=== PATIENT | female | born 1960 | race Caucasian/White ===

== ENCOUNTER → 2017-06-12 15:49 | Outpatient (CLI) | payer BC, SELFPAY ==
--- NOTE | 2017-06-12 15:52 | CT_ITS ---
STUDY: CT CHEST WITH CONTRAST REASON FOR EXAM: Female, 57 years old. 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 RADIATION DOSAGE (If Supplied By Facility): CTDIvol = ( 16.23 ) mGy, DLP = ( 564.40 ) mGycm TECHNIQUE: Transaxial imaging was performed following intravenous administration of 100CC ml of Isovue 300 contrast material. Multiplanar coronal and sagittal images were reformatted. Individualized dose optimization techniques were used for this CT. COMPARISON: CT of the chest, June 04, 2016. FINDINGS: The lungs are are mildly hyperexpanded. There is evidence of left lower lobectomy There is no focal mass or infiltrate within the lungs. There is no demonstrated pleural abnormality. Normal heart and pericardium. Normal mediastinum. Normal hilar regions. Normal enhanced pulmonary arteries. Normal aorta arch and descending thoracic aorta. There are multi-level degenerative changes of the thoracic spine. There is no demonstrated abnormality of the visualized upper abdomen. CT/Chest WITH Contrast IMPRESSION: 1. Left lower lobe lobectomy with removal of the lower lobe mass seen on the prior study. 2. No other interval change. Electronically Signed: Shashank Saldivar DO at 16:59 EDT Tel [phone], Service support ,
[2017-06-12 16:21] LABS: CREATININE FINGERSTICK 0.8 mg/dL (0.55-1.02); EGFR FINGERSTICK > 60.0000 mL/min (>60)
== END ==
PROVIDERS: Visit Provider Internal Medicine Medical Oncology
DX: D3A.090 Benign carcinoid tumor of the bronchus and lung (principal)
CPT/HCPCS: 71260; Q9967

== ENCOUNTER → 2017-08-12 08:12 | Outpatient (CLI) | payer BC, SELFPAY ==
[2017-08-12 09:07] LABS: Glucose, Dipstick Normal (Normal); Ketone-Dipstick Negative (Negative); Leukocyte Esterase-Dipstick Negative /ul (Negative); Nitrite-Dipstick Positive (Negative); Occult Blood-Urine 25 /ul (Negative); Protein-Dipstick Negative (Negative); Urine Bilirubin Dipstick Negative (Negative); Urine Urobilinogen Normal (Normal)
[2017-08-12 09:10] LABS: Color, Urine Yellow (Yellow); Urine Clarity Sl Cldy (Clear)
[2017-08-12 09:20] LABS: Hemoglobin A1c 6.4 % (4.2-6.3)
[2017-08-12 09:34] LABS: ALB/GLOB Ratio 0.7 RATIO (0.9-2.4); AST(SGOT) 13 U/L (15-37); Alanine Aminotransfer ALT/SGPT 17 U/L (13-56); Alkaline Phosphatase 95 U/L (45-117); Anion Gap 5 (5-15); BUN 15 mg/dL (7-18); BUN/Creat Ratio 23.8 RATIO (10-20); Calcium,Total 8.7 mg/dL (8.5-10.1); Chloride 106 mmol/L (98-107); Cholesterol 122 mg/dL (200); Creatinine, Serum 0.63 mg/dL (0.55-1.02); EST Glomerular Filtration Rate 104 mL/min (>60); Est Glom Filt Rate - Afr Amer 126 mL/min (>60); Globulin 4.1 g/dL (2.2-4.2); Glucose 104 mg/dL (74-106); High Density Lipoprotein 40 mg/dL; Potassium 4.1 mmol/L (3.5-5.1); Protein, Total 7.1 g/dL (6.4-8.2); Sodium Level 140 mmol/L (136-145); Triglycerides 99 mg/dL; Very Low Density Lipoprotein 20 mg/dL (5-40)
== END ==
PROVIDERS: Visit Provider Family Medicine
DX: E78.00 Pure hypercholesterolemia, unspecified (principal); I10 Essential (primary) hypertension; E11.9 Type 2 diabetes mellitus without complications
CPT/HCPCS: 36415; 80053; 80061; 81002; 83036

== ENCOUNTER → 2017-12-12 17:02 | Outpatient (CLI) | payer BC, SELFPAY | PROVIDERS: Referring Provider Urology; Visit Provider Urology | DX: R30.0 Dysuria (principal) | CPT/HCPCS: 87077; 87086; 87088; 87186 ==

== ENCOUNTER 2018-01-07 02:35 | Emergency (ER) | payer BC, SELFPAY ==
[2018-01-07 02:36] VITALS: BP 149/77; PULSE 82; RESP 18; TEMP 36.4; O2SAT 97; BMI 35.1
--- NOTE | 2018-01-07 02:56 | CT_ITS ---
STUDY: CT ABDOMEN AND PELVIS WITHOUT CONTRAST REASON FOR EXAM: Female, 57 years old. Right flank pain RADIATION DOSAGE (If Supplied By Facility): CTDIvol = ( 18.87 ) mGy, DLP = ( 976.14 ) mGycm TECHNIQUE: Transaxial images were obtained from the dome of the diaphragm to the symphysis pubis without oral contrast, and without intravenous contrast. Sagittal and coronal images were reconstructed. # of Images: 486 Individualized dose optimization techniques were used for this CT. COMPARISON: 11/14/2016 FINDINGS: The visualized lung bases are unremarkable. The visualized portions of the heart are within normal limits. Normal liver. Normal gallbladder and extrahepatic biliary system. Normal spleen. Normal pancreas. Normal bilateral adrenal glands. Moderate right hydroureteronephrosis is noted with associated renal swelling and stranding. No underlying obstructing ureter stone is seen, however. No bladder stones are seen. Normal left kidney. Normal visualized stomach. 2 cm duodenal diverticulum. Normal colon. The appendix is visualized and appears normal. Normal abdominal aorta. Normal inferior vena cava. Normal retroperitoneum. Normal urinary bladder. Normal abdominal wall. Normal osseous structures. CT/Abdomen/Pelvis without Cont IMPRESSION: Moderate right hydroureteronephrosis is noted with associated renal swelling and stranding. No underlying obstructing ureter stone is seen, however. No bladder stones are seen. Findings are likely related to residual obstructive uropathy from a previously passed stone. Duodenal diverticulum. Electronically Signed: Ki Lyles MD at 3:41 EDT Tel , Service support ,
--- NOTE | 2018-01-07 02:58 | ED.DCSUM_ITS ---
History of Present Illness Chief Complaint: Flank Pain Informant: Patient Onset: Today Context: Sudden Onset Timing: Intermittent Current Severity: Severe Maximum Severity: Severe Worsened by: nothing Relieved by: nothing despite taking an old Percocet Associated Symptoms: n/v Narrative: Patient with a long-standing history of kidney stones states she is having kidney stone pain today on the right side. Radiates into her back. Not into her groin. She states it started almost 20 hours ago, she passed a couple of small stones and the pain went away, but then it came back, feeling like she had another stone that would not pass and the pain got worse. She had some dry heaving at home. No fevers. She had some mild dysuria and a small amount of hematuria. She is on no anticoagulants. Prior similar symptoms: Yes - Past Medical History (1) Kidney stones Status: Chronic (2) Hypertension Status: Chronic (3) Carcinoid tumor of left lung Status: Resolved Past Medical History - Allergies and Home Meds Allergies/Adverse Reactions: Allergies erythromycin base Adverse Reaction (Severe, Verified 01/07/18 02:36) Upset Stomach Primary Care Physician: Billy Bhatti MD [Primary Care Provider] - Lives: Spouse/ Significant Other Smoking Status: Former smoker Review of Systems General: Denies: Chills, Fever Cardiovascular: Denies: Chest pain, Palpitations Respiratory: Denies: Dyspnea, Cough Gastrointestinal: Reports: Abdominal pain, Nausea, Vomiting Genitourinary: Reports: Dysuria, Hematuria. Denies: Frequency Musculoskeletal: Reports: Back pain. Denies: Swelling, Extremity Pain Physical Exam Vital Signs/Narrative: Vital Signs Temp Pulse Resp BP Pulse Ox 01/07/18 02:36 97.5 F L 82 18 149/77 H 97 Inital Vital Signs reviewed: Yes General: Well nourished, Well developed, Obese, - - nad Head: Normocephalic, Atraumatic Eyes: Perrl, EOMI ENT: Moist mucous membranes, No rhinorrhea Neck: Supple, Nontender Cardiovascular: Regular rate, Regular rhythm, No murmurs Respiratory: No distress, CTA bilaterally, Chest nontender Abdomen: Soft, Nontender, Nondistended, Normal bowel sounds Back: Nontender, Normal Inspection. Negative for: CVA tenderness Extremities: Nontender, No edema Skin: Normal color, No rash Neurological: Alert, Oriented x3, Cranial nerves II-XII grossly intact, Normal Strength, Normal Sensation Psychological: Normal affect Diagnostic/Tx/Re-eval Impressions Abdomen/Pelvis CT 01/07/18 02:56 IMPRESSION: Moderate right hydroureteronephrosis is noted with associated renal swelling and stranding. No underlying obstructing ureter stone is seen, however. No bladder stones are seen. Findings are likely related to residual obstructive uropathy from a previously passed stone. Duodenal diverticulum. Electronically Signed: Ki Lyles MD at 3:41 EDT Tel , Service support , 01/07/18 02:56 Abdomen/Pelvis without Cont [CT] Stat Laboratory Results 01/07/18 01/07/18 01/07/18 02:52 02:52 02:52 WBC 15.5 H RBC 4.62 Hgb 13.5 Hct 40.6 MCV 87.9 MCH 29.2 MCHC 33.3 RDW 15.5 H RDW Differential 50.3 H Plt Count 311 MPV 9.2 Immature Gran % (Auto) 0.500 Neut % (Auto) 76.4 H Lymph % (Auto) 15.5 L Cocke % (Auto) 6.1 Eos % (Auto) 1.2 Baso % (Auto) 0.3 Absolute Neuts (auto) 11.9 H Absolute Lymphs (auto) 2.41 Total Counted Not Reportable Sodium 140 Potassium 3.8 Chloride 104 Carbon Dioxide 29.0 Anion Gap 7 BUN 22 H Creatinine 0.80 Estim Creat Clear Calc 70.66 Est GFR (MDRD) Af Amer 96 Est GFR (MDRD) Non-Af 79 BUN/Creatinine Ratio 27.7 H Glucose 142 H Calcium 8.7 Urine Color Yellow Urine Clarity Clear Urine pH 5.0 Ur Specific [place] 1.030 Urine Protein 100 H Urine Glucose (UA) Normal Urine Ketones Negative Urine Occult Blood 150 H Urine Nitrite Negative Urine Bilirubin Negative Urine Urobilinogen Normal Ur Leukocyte Esterase 25 H Urine RBC 0 SEEN Urine WBC 0-5 SEEN Ur Squamous Epith Cells 0-5 SEEN Urine Bacteria 0 SEEN Hyaline Casts 0-5 SEEN Urine Mucus 0 SEEN - Medical Decision Making Labs are unremarkable, urine shows no infection but there is evidence of microscopic hematuria, CT shows hydronephrosis on the right, however there is no stone obstructing at this time, or signs of any other obstruction. There is some stranding, there is basically the appearance of a stone that was recently passed and there is no stone in the bladder. Patient was given analgesics and Zofran, she is feeling much better, with resolution of all symptoms. Will discharge with close outpatient follow-up if she has persistent symptoms, with urology. ED Disposition - Plan for ED Patient: Disposition: Home or Assisted Living Chief Complaint: Flank Pain Diagnosis: Renal colic on right side, Kidney stones Instructions: ED Stone Renal Passed Referrals: Roshan Farias MD [STAFF PHYSICIAN] - 3-5 Days if not improving
[2018-01-07] MEDS: Ketorolac 30 MG/ML Syringe IV (03:03)
[2018-01-07] MEDS: Morphine 4 MG/ML Syringe IV (03:03)
[2018-01-07] MEDS: Ondansetron 4 MG/2 ML Vial IV (03:03)
[2018-01-07 03:04] LABS: Bacteria 0 SEEN /hpf (None Seen); Mucous, Urine 0 SEEN /hpf (<or=2+); Red Blood Cells-Urine 0 SEEN /hpf (0-5)
[2018-01-07 03:12] LABS: Absolute Lymphocyte Count 2.41 X10^3/ul (0.83-4.51); Absolute Neutrophil Count 11.9 X10^3/uL (2.0-7.7); Basophil# 0.05 X10^3/uL; Basophil% 0.3 % (0-1); Eosinophil# 0.18 X10^3/uL; Eosinophils% 1.2 % (0-5); Hematocrit 40.6 % (37-47); Hemoglobin 13.5 g/dl (12.0-15.0); Lymphocyte # 2.41 X10^3/ul (4.0); Lymphocyte % 15.5 % (19-41); Mean Corp Hgb Conc 33.3 g/gl (32-36); Mean Corpuscular Hgb 29.2 pg (27.0-32.0); Mean Corpuscular Volume 87.9 fL (81-99); Mean Platelet Vol. 9.2 fl (6.2-12.0); Monocyte# 0.95 X10^3/uL; Monocyte% 6.1 % (0-10); Neutrophil # 11.88 X10^3/uL (2.7-7.7); Neutrophil % 76.4 % (47-70); Platelet Count 311 K/mm3 (150-450); RBC Distribution Width CV 15.5 % (11.6-14.6); RBC Distribution Width SD 50.3 fl (35.1-43.9); Red Blood Count 4.62 M/mm3 (4.2-5.4); White Blood Count 15.5 K/mm3 (4.4-11.0)
[2018-01-07 03:15] LABS: Color, Urine Yellow (Yellow); Glucose, Dipstick Normal (Normal); Ketone-Dipstick Negative (Negative); Leukocyte Esterase-Dipstick 25 /ul (Negative); Nitrite-Dipstick Negative (Negative); Occult Blood-Urine 150 /ul (Negative); POSITIVE COUNT NO; POSITIVE DIFFERENTIAL NO; POSITIVE MORPHOLOGY NO; Protein-Dipstick 100 mg/dl (Negative); Urine Bilirubin Dipstick Negative (Negative); Urine Clarity Clear (Clear); Urine Urobilinogen Normal (Normal)
[2018-01-07 03:22] LABS: Anion Gap 7 (5-15); BUN 22 mg/dL (7-18); BUN/Creat Ratio 27.7 RATIO (10-20); Calcium,Total 8.7 mg/dL (8.5-10.1); Chloride 104 mmol/L (98-107); EST Glomerular Filtration Rate 79 mL/min (>60); Est Glom Filt Rate - Afr Amer 96 mL/min (>60); Estimated Creatinine Clearance 70.66 ml/min; Glucose 142 mg/dL (74-106); Potassium 3.8 mmol/L (3.5-5.1); Sodium Level 140 mmol/L (136-145)
[2018-01-07 03:30] LABS: Hyaline Cast 0-5 SEEN /lpf (0-5); Squamous Epithelial Cells - UA 0-5 SEEN /hpf (5-10); White Blood Cells 0-5 SEEN /hpf (0-5)
[2018-01-07 04:32] VITALS: BP 116/71; PULSE 80; RESP 18; O2SAT 93
== END 2018-01-07 04:32 | disposition home or self-care (01) ==
PROVIDERS: Emergency Provider Emergency Medicine; Family Provider Family Medicine; PCP Family Medicine
DX: N13.2 Hydronephrosis with renal and ureteral calculous obstruction (principal); R31.29 Other microscopic hematuria; E66.9 Obesity, unspecified; I10 Essential (primary) hypertension; Z87.891 Personal history of nicotine dependence; Z87.442 Personal history of urinary calculi
CPT/HCPCS: 74176; 80048; 81001; 85025; 96374; 96375; 99282; J7030; J2405

== ENCOUNTER → 2018-01-22 16:19 | Outpatient (CLI) | payer BC, SELFPAY ==
--- NOTE | 2018-01-22 | FLU_PTH ---
PATIENT: LIZZY RITTER LOC: LAB U#:[id number] AGE/SX: 65/F ROOM: RE01/22/[address]: Dr. Roshan Farias MD : 1960 BED: DIS: SPEC #: [id number] RECD: 01/22/18 16:33 STATUS: MUNA FAINA #: [id number] HARJIT: 01/22/18 00:[address]: Roshan Farias DEPT: CYTOLOGY RECD BY: Henny Kaufman ENTERED: 01/23/18 09:19 SP TYPE: Fluid OTHR DR: Dr. Billy Bhatti MD Tissues: Urine Procedures: Special Stain Group II Surgery Specimen Level IV Cytospin Fluid HEADER OPERATION: Not noted PRE-OP DIAGNOSIS: Hematuria, R31.9 TISSUE SUBMITTED: Urine for cytology DIAGNOSIS CYTOLOGY Urine for cytology (cytospin): Negative for malignant cells. See comment. AM:stephanie 01/24/18 COMMENT The specimen primarily contains squamous epithelial cells. Clinical correlation is suggested. CYTOLOGY STUDY Slides are reviewed. CYTOLOGY GROSS Received is 85 ml of cloudy pale yellow fluid labeled with the patient's name and and designated per the requisition as urine. Submitted for cytology. /CC:cc 01/23/18 TC:3 CPT: 15700
[2018-01-22 16:34] LABS: Cytology, Body Fluid / CSF SEE PATHOLOGY REPORT
== END ==
PROVIDERS: Family Provider Family Medicine; PCP Family Medicine; Referring Provider Urology; Visit Provider Urology
DX: R31.9 Hematuria, unspecified (principal)
CPT/HCPCS: 88108; 88305; 88313

== ENCOUNTER → 2018-02-11 09:40 | Outpatient (CLI) | payer BC, SELFPAY ==
[2018-02-11 10:33] LABS: Cholesterol 145 mg/dL (200); High Density Lipoprotein 48 mg/dL; Triglycerides 113 mg/dL; Very Low Density Lipoprotein 23 mg/dL (5-40)
[2018-02-11 10:39] LABS: Hemoglobin A1c 6.7 % (4.2-6.3)
== END ==
PROVIDERS: Family Provider Family Medicine; PCP Family Medicine; Visit Provider Family Medicine
DX: I10 Essential (primary) hypertension (principal); E78.5 Hyperlipidemia, unspecified; E11.9 Type 2 diabetes mellitus without complications; E78.00 Pure hypercholesterolemia, unspecified; I48.91 Unspecified atrial fibrillation
CPT/HCPCS: 36415; 80061; 83036

== ENCOUNTER 2018-03-04 17:35 | Emergency (ER) | payer BC, SELFPAY ==
[2018-03-04 17:36] VITALS: BP 146/79; PULSE 78; RESP 16; TEMP 37; O2SAT 99; BMI 34.5
--- NOTE | 2018-03-04 17:56 | ED.VISSUMM ---
- ER Visit Summary Date of Service: 03/04/18 Chief Complaint: Hives and itching History of Present Illness: The patient is a 58 F who presents with hives and itching that began yesterday. Patient states she cleaned her shower yesterday then took a shower. Patient states the hives and itching started after her shower. Patient states she applied lotion to her legs after her shower. Patient denies any new soaps, mechatronics engineer, lotions, perfumes, laundry detergents, fabric softeners, or shampoos. Patient states she was recently tested for allergies by a machine helper. Patient states she had test strips put on her back and were removed approximately 10 days ago. Patient had no reaction over the past 10 days. Patient denies any difficulty swallowing or difficulty breathing. Physical Examination: Vital signs are stable. Patient is afebrile. Patient is in no acute distress. Oral mucosa is pink and moist. Oropharynx is clear. Airway is patent. Neck is supple. Trachea is midline. Heart was regular rate and rhythm. Lungs are clear and equal bilateral. There is good respiratory effort noted. Abdomen is soft and nontender. Skin is warm dry. There is urticaria noted of the chest, abdomen, back, and bilateral upper extremities. There are no vesicles or pustules noted. There is no discharge or drainage noted. Cranial nerves II through XII are intact. There are no focal motor or sensory deficits noted. Emergency Department Course and Treatment: Patient was given a prescription for prednisone. Patient was instructed to follow-up with her machine helper in 7-10 days. Patient was instructed to take Benadryl as needed for any itching. Patient was instructed to return if worse in any way. Patient understood and was agreeable with the plan. All questions were answered. Disposition: Discharge home Impression: Urticaria This note was generated with [employer] dictation software. It may contain incorrect words, spelling, and punctuation that were not noted in review of the chart prior to signing ED Disposition - Plan for ED Patient: Disposition: Home or Assisted Living Chief Complaint: Itching Diagnosis: Urticaria Instructions: ED Allergic Reaction General Other Prescriptions: predniSONE tablet 60 mg PO DAILY #15 tab Referrals: Billy Bhatti MD [Primary Care Provider] -
--- NOTE | 2018-03-04 18:00 | ED.DCSUM_ITS ---
- ER Visit Summary Date of Service: 03/04/18 Chief Complaint: Hives and itching History of Present Illness: The patient is a 58 F who presents with hives and itching that began yesterday. Patient states she cleaned her shower yesterday then took a shower. Patient states the hives and itching started after her shower. Patient states she applied lotion to her legs after her shower. Patient denies any new soaps, call center specialist, lotions, perfumes, laundry detergents, fabric softeners, or shampoos. Patient states she was recently tested for allergies by a workforce development assistant. Patient states she had test strips put on her back and were removed approximately 10 days ago. Patient had no reaction over the past 10 days. Patient denies any difficulty swallowing or difficulty breathing. Physical Examination: Vital signs are stable. Patient is afebrile. Patient is in no acute distress. Oral mucosa is pink and moist. Oropharynx is clear. Airway is patent. Neck is supple. Trachea is midline. Heart was regular rate and rhythm. Lungs are clear and equal bilateral. There is good respiratory effort noted. Abdomen is soft and nontender. Skin is warm dry. There is urticaria noted of the chest, abdomen, back, and bilateral upper extremities. There are no vesicles or pustules noted. There is no discharge or drainage noted. Cranial nerves II through XII are intact. There are no focal motor or sensory deficits noted. Emergency Department Course and Treatment: Patient was given a prescription for prednisone. Patient was instructed to follow-up with her workforce development assistant in 7-10 days. Patient was instructed to take Benadryl as needed for any itching. Patient was instructed to return if worse in any way. Patient understood and was agreeable with the plan. All questions were answered. Disposition: Discharge home Impression: Urticaria This note was generated with [employer] dictation software. It may contain incorrect words, spelling, and punctuation that were not noted in review of the chart prior to signing ED Disposition - Plan for ED Patient: Disposition: Home or Assisted Living Chief Complaint: Itching Diagnosis: Urticaria Instructions: ED Allergic Reaction General Other Prescriptions: predniSONE tablet 60 mg PO DAILY #15 tab Referrals: Billy Bhatti MD [Primary Care Provider] -
[2018-03-04] MEDS: predniSONE 20 MG Tablet 60 MG PO (18:19)
[2018-03-04 18:21] VITALS: PULSE 74; RESP 16; O2SAT 100
--- OUTSIDE RECORDS SUMMARY | 2018-06-06 13:44 | XMS RPT_ITS ---
:1960 Author Organization [place] Support Name Relationship Address Phone MADI RITTER Unavailable [address] + [place] [address] SALINAS, ERICK Unavailable [address] + [place] [address] WOOBR Unavailable [address] [place] [address] MADI RITTER Unavailable [address] + [place] [address] SALINAS, ERICK Unavailable [address] + [place] [address] WOOBR Unavailable [address] [place] [address] MADI RITTER Unavailable [address] + [place] [address] SALINAS, ERICK Unavailable [address] + [place] [address] WOOBR Unavailable [address] [place] [address] MADI RITTER Unavailable [address] + [place] [address] SALINAS, ERICK Unavailable [address] + [place] [address] WOOBR Unavailable [address] [place] [address] MADI RITTER Unavailable [address] + [place] [address] SALINAS, ERICK Unavailable [address] + [place] [address] WOOBR Unavailable [address] [place] [address] MADI RITTER Unavailable [address] + [place] [address] SALINAS, ERICK Unavailable [address] + [place] [address] WOOBR Unavailable [address] [place] [address] MADI RITTER Unavailable [address] + [place] [address] SALINAS, ERICK Unavailable [address] + [place] [address] WOOBR Unavailable [address] [place] [address] MADI RITTER Unavailable [address] + [place] [address] SALINAS, ERICK Unavailable [address] + [place] [address] WOOBR Unavailable [address] [place] [address] RITTER, DANIEL Unavailable [address] + [place] [address] SALINAS, ERICK Unavailable [address] + [place] [address] WOOBR Unavailable [address] [place] [address] MADI RITTER Unavailable [address] + [place] [address] SALINAS, ERICK Unavailable [address] + [place] [address] WOOBR Unavailable [address] [place] [address] MADI RITTER Unavailable [address] + [place] [address] SALINAS, ERICK Unavailable [address] + [place] [address] WOOBR Unavailable [address] [place] [address] MADI RITTER Unavailable [address] + [place] [address] SALINAS, ERICK Unavailable [address] + [place] [address] WOOBR Unavailable [address] [place] [address] MADI RITTER Unavailable [address] + [place] [address] SALINAS, ERICK Unavailable [address] + [place] [address] WOOBR Unavailable [address] [place] [address] Care Team Providers Name Role Phone Malcom Marina Attending Unavailable Davy, Billy Primary Care Unavailable Su Will Attending Unavailable Davy, Billy Referring Unavailable Davy, Billy Primary Care Unavailable Akshat Bermudez Attending Unavailable Davy, Billy Attending Unavailable Davy, Billy Referring Unavailable Davy, Billy Primary Care Unavailable Malcom Marina Attending Unavailable Malcom Marina Referring Unavailable Davy, Billy Primary Care Unavailable Malcom Marina Attending Unavailable Davy, Billy Primary Care Unavailable Malcom Marina Consulting Unavailable Davy, Billy Attending Unavailable Davy, Billy Referring Unavailable Davy, Billy Primary Care Unavailable Su Calderón Attending Unavailable Chava Price Attending Unavailable Davy, Billy Referring Unavailable Davy, Billy Primary Care Unavailable Roshan Farias Attending Unavailable Roshan Farias Referring Unavailable SANDHYA ESTRADA Attending Unavailable Davy, Billy Primary Care Unavailable Roshan Farias Attending Unavailable DinoraRoshan Referring Unavailable Davy, Billy Primary Care Unavailable Billy Bhatti Attending Unavailable Billy Bhatti Primary Care Unavailable DavyBilly castillo Jasvir Attending Unavailable PROBLEMS PROBLEMS DATE TYPE CONDITION / CODE ATTENDING STATUS SOURCE 01/29/2018 Admitting Unknown / Billy Bhatti Active [facility] diagnosis UNK(Unknown) G [facility] Repository 01/22/2018 Unknown R31.9 - Hematuria, DinoraRoshan Active [facility] unspecified / [facility] R31.9(ICD-10) Hospital Repository 09/21/2017 Unknown I97.89 - Other Albert, Chava Active [facility] postprocedural Community complications and Hospital disorders of the Repository circulatory system, not elsewhere classified / I97.89(ICD-10) 09/21/2017 Unknown I48.91 - Unspecified Albert, [place] Active [facility] atrial fibrillation Community / I48.91(ICD-10) Hospital Repository 08/12/2017 Unknown E78.00 - Pure Billy Bhatti Active [facility] hypercholesterolemia Community , unspecified / Hospital E78.00(ICD-10) Repository 08/12/2017 Unknown I10 - Essential Billy Bhatti Active [facility] (primary) Community hypertension / Hospital I10(ICD-10) Repository 08/12/2017 Unknown E11.9 - Type 2 Billy Bhatti Active [facility] diabetes mellitus Community without Hospital complications / Repository E11.9(ICD-10) 06/14/2017 Unknown 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 - 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 / Repository D3A.090(ICD-10) PROCEDURES PROCEDURES No Procedure Records FoundRESULTS RESULTS SCREENING MAMM (CAD), Observed: 04/02/2018 Status: F Source: [place] BILAT 4:08 PM [facility] REPOSITORY [facility] Imaging Services [address] [place] [address] SCREENING MAMM (CAD), BILAT MR#: [id number] Acct: [id number] Name: CHERISE RITTER Rep #: [id number] : 1960 F 58 From: Adin Posadas MD PCP: Billy Bhatti MD Status: REG CLI Study: SCREENING MAMM (CAD), BILAT Date of Exam: 04/02/18 Exam# [id number] Ordering Dr: Billy Bhatti MD MAMMOGRAPHY - BILATERAL SCREENING REASON FOR EXAM: Female, 58 years old. Routine annual screening examination. PERTINENT HISTORY: Non-contributory. TECHNIQUE: Digital bilateral breast ana (3D mammographic acquisition) in the CC and MLO projections. 2-D mediolateral oblique (MLO) and craniocaudad (CC) views of both breasts were obtained. CAD: Full Field Digital Mammography with Computer Added Detection was performed. COMPARISON: Comparison is made with prior study dated February 24, 2017 and August 25, 2014. FINDINGS: Breast Composition: The breasts are almost entirely fatty. There are no dominant masses or suspicious calcifications. No other significant abnormalities are identified. There has been no significant change since the prior study. BI/SCREENING MAMM (CAD), BILAT IMPRESSION: Stable bilateral screening mammogram. Yearly follow-up mammogram recommended. (A) ASSESSMENT CATEGORY: BIRADS Category 1: Negative. A letter regarding these results will be sent to the patient by the facility within 30 days. Approximately 10% of breast cancers are not detected by mammography. A normal mammogram should not delay biopsy of a clinically suspicious abnormality. [id number] Electronically Signed: Adin Posadas MD at 11:02 EST Tel [phone], Service support , CC: Billy Bhatti MD Nutritionists: Signed EMERGENCY DEPARTMENT Observed: 03/04/2018 Status: F Source: [place] SUMMARY 6:00 PM [facility] REPOSITORY [facility] Medical Records Department [address] [place] [address] Emergency Department Summary 03/04/18 1756 MR#: [id number] Acct: [id number] Name: CHERISE RITTER Rep #: [id number] : 1960 58 From: Akshat Bermudez DO PCP: Billy Bhatti MD Status: PRE ER - ER Visit Summary Date of Service: 03/04/18 Chief Complaint: Hives and itching History of Present Illness: The patient is a 58 F who presents with hives and itching that began yesterday. Patient states she cleaned her shower yesterday then took a shower. Patient states the hives and itching started after her shower. Patient states she applied lotion to her legs after her shower. Patient denies any new soaps, email marketing assistant, lotions, perfumes, laundry detergents, fabric softeners, or shampoos. Patient states she was recently tested for allergies by a technical support 1 software engineer. Patient states she had test strips put on her back and were removed approximately 10 days ago. Patient had no reaction over the past 10 days. Patient denies any difficulty swallowing or difficulty breathing. Physical Examination: Vital signs are stable. Patient is afebrile. Patient is in no acute distress. Oral mucosa is pink and moist. Oropharynx is clear. Airway is patent. Neck is supple. Trachea is midline. Heart was regular rate and rhythm. Lungs are clear and equal bilateral. There is good respiratory effort noted. Abdomen is soft and nontender. Skin is warm dry. There is urticaria noted of the chest, abdomen, back, and bilateral upper extremities. There are no vesicles or pustules noted. There is no discharge or drainage noted. Cranial nerves II through XII are intact. There are no focal motor or sensory deficits noted. Emergency Department Course and Treatment: Patient was given a prescription for prednisone. Patient was instructed to follow-up with her technical support 1 software engineer in 7-10 days. Patient was instructed to take Benadryl as needed for any itching. Patient was instructed to return if worse in any way. Patient understood and was agreeable with the plan. All questions were answered. Disposition: Discharge home Impression: Urticaria This note was generated with [employer] dictation software. It may contain incorrect words, spelling, and punctuation that were not noted in review of the chart prior to signing ED Disposition - Plan for ED Patient: Disposition: Home or Assisted Living Chief Complaint: Itching Diagnosis: Urticaria Instructions: ED Allergic Reaction General Other Prescriptions: predniSONE tablet 60 mg PO DAILY #15 tab Referrals: Billy Bhatti MD [Primary Care Provider] - What to do if you have Problems For any increased pain, shortness of breath, bleeding, nausea or vomiting, chest pain, or any unexpected problems, contact your Primary Care Provider. Call [facility] ([phone]) or report to the closest Emergency Room. Call 911 if necessary. 03/04/18 1800 <Electronically signed by Akshat Bermudez DO> Date Akshat Bermudez DO Cosigner Signature (If Indicated): Date CC: Billy Bhatti MD LIPID PROFILE Collected: 02/11/2018 Status: F Source: [place]K 9:50 AM [facility] REPOSITORY TYPE CODE TESTS RESULT OUT OF RANGE REFERENCE UNITS LAB L501.4900 200 mg/dL Normal CHOL 145 Result Comment: <200 mg/dL Desirable 200-240 mg/dL Borderline >240 mg/dL High Risk LAB L501.5000 mg/dL Normal TRIG 113 Result Comment: The drugs N-Acetylcysteine and Metamizole may falsely depress this assay. Serum Triglycerides Reference Interval Normal <150 mg/dL Borderline high 150 - 199 mg/dL High 200 - 499 mg/dL Very High > or = 500 mg/dL LAB L501.6400 mg/dL Normal HDL 48 Result Comment: The drugs N-Acetylcysteine and Metamizole may falsely depress this assay. Reference Range HDL <40 mg/dL Low HDL Cholesterol HDL >or= 60 mg/dL High HDL Cholesterol LAB L501.6500 0-130 mg/dL Normal LDL 74 LAB L501.6600 5-40 mg/dL Normal VLDL 23 Performed By: #### L500.4100 #### [facility] [address] [place], [address] HEMOGLOBIN A1C Collected: 02/11/2018 Status: F Source: GREAT NECK 9:50 AM [facility] REPOSITORY TYPE CODE TESTS RESULT OUT OF RANGE REFERENCE UNITS LAB L501.9985 4.2-6.3 % High HGB A1C 6.7 Performed By: #### L501.9985 #### [facility] [place], [address] PAP SMEAR Observed: 01/29/2018 Status: F Source: [facility] 4:41 PM [facility] Patient: CHERISE RITTER Specimen: [id number] Spec Type: PAP SMEAR OrdAri Boss: Billy Bhatti MD Status: SOUT Collect Date: 01/29/18 1641 Received Date: 01/30/1844 Source: CERVICAL() Procedure: CYTO PAP TLP MS Comments: Thinprep vial PAP QUESTIONNAIRE Patient: CHERISE RITTER ? - control? - Age/Sex: 57/F F ? - Hormones? - Col Date: 01/29/18 Menopausal? - Hyster? - LMP: NOT GIVEN Pertinent Hx: SCREENING PAP CYTOLOGY REPORT SPECIMEN ADEQUACY: SPECIMEN PROCESSED and EXAMINED, BUT UNSATISFACTORY FOR EVALUATION OF EPITHELIAL ABNORMALITY BECAUSE SCANT CELLULARITY PRESENT. DESCRIPTIVE DIAGNOSIS: SEE ADEQUACY STATEMENT. HPV TESTING: THERE IS INSUFFICIENT SPECIMEN TO SEND FOR HPV TESTING. Signed Verified/Reviewed by RODRÍGUEZ GUEVARA 02/06/18 [facility] NAME: CHERISE RITTER Pathology and Laboratory Medicine UNIT#: [id number] [facility] Ava Francis M.D. ROOM/BED: [facility] : 62 AGE/SEX: 58/F ORD.Billy Coles MD END OF REPORT CYTOLOGY, BODY FLUID / Collected: 01/22/2018 Status: F Source: [place] CSF 4:33 PM [facility] REPOSITORY Order Comment: Specimen Source: URINE TYPE CODE TESTS RESULT OUT OF RANGE REFERENCE UNITS LAB L350.1000 SEE Normal PATHOLOGY CYTOLOGY,BF REPORT /CSF Result Comment: Specimen submitted to Anatomical Pathology Department for testing. Performed By: #### L350.1000 #### [facility] [place], [address] FLUID/WASHING Observed: 01/22/2018 Status: F Source: HIEN 12:00 AM [facility] REPOSITORY Patient: CHERISE RITTER : 1960 (57/F) Acct Num: [id number] Phys: Dinora PULIDO,Roshan Ruby Unit Num: [id number] Loc: LAB Specimen: [id number] Received: 01/22/18 - 1633 Spec Type: Fluid TISSUES 1 TISSUES: Urine COMMENT The specimen primarily contains squamous epithelial cells. Clinical correlation is suggested. CYTOLOGY GROSS Received is 85 ml of cloudy pale yellow fluid labeled with the patient's name and and designated per the requisition as urine. Submitted for cytology. /CC:cc 01/23/18 TC:3 CPT: 54628 CYTOLOGY STUDY Slides are reviewed. DIAGNOSIS CYTOLOGY Urine for cytology (cytospin): Negative for malignant cells. See comment. AM:stephanie 01/24/18 HEADER OPERATION: Not noted PRE-OP DIAGNOSIS: Hematuria, R31.9 TISSUE SUBMITTED: Urine for cytology Signed Lefty Manda 01/24/18 <signature on file> Performed By: #### PFLU #### [facility] [address] [facility] [place], [address] EMERGENCY DEPARTMENT Observed: 01/07/2018 Status: F Source: GREAT NECK SUMMARY 4:24 AM [facility] REPOSITORY [facility] Medical Records Department [address] [facility] [place] [address] Emergency Department Summary 01/07/18 0257 MR#: [id number] Acct: [id number] Name: CHERISE RITTER Rep #: [id number] : 1960 57 From: Sandhya Estrada MD PCP: Billy Bhatti MD Status: REG ER History of Present Illness Chief Complaint: Flank Pain Informant: Patient Onset: Today Context: Sudden Onset Timing: Intermittent Current Severity: Severe Maximum Severity: Severe Worsened by: nothing Relieved by: nothing despite taking an old Percocet Associated Symptoms: n/v Narrative: Patient with a long-standing history of kidney stones states she is having kidney stone pain today on the right side. Radiates into her back. Not into her groin. She states it started almost 20 hours ago, she passed a couple of small stones and the pain went away, but then it came back, feeling like she had another stone that would not pass and the pain got worse. She had some dry heaving at home. No fevers. She had some mild dysuria and a small amount of hematuria. She is on no anticoagulants. Prior similar symptoms: Yes - Past Medical History (1) Kidney stones Status: Chronic (2) Hypertension Status: Chronic (3) Carcinoid tumor of left lung Status: Resolved Past Medical History - Allergies and Home Meds Allergies/Adverse Reactions: Allergies erythromycin base Adverse Reaction (Severe, Verified 01/07/18 02:36) Upset Stomach Primary Care Physician: Billy Bhatti MD [Primary Care Provider] - Lives: Spouse/ Significant Other Smoking Status: Former smoker Review of Systems General: Denies: Chills, Fever Cardiovascular: Denies: Chest pain, Palpitations Respiratory: Denies: Dyspnea, Cough Gastrointestinal: Reports: Abdominal pain, Nausea, Vomiting Genitourinary: Reports: Dysuria, Hematuria. Denies: Frequency Musculoskeletal: Reports: Back pain. Denies: Swelling, Extremity Pain Physical Exam Vital Signs/Narrative: Vital Signs 01/07/18 02:36 97.5 F L 82 18 149/77 H 97 Inital Vital Signs reviewed: Yes General: Well nourished, Well developed, Obese, - - nad Head: Normocephalic, Atraumatic Eyes: Perrl, EOMI ENT: Moist mucous membranes, No rhinorrhea Neck: Supple, Nontender Cardiovascular: Regular rate, Regular rhythm, No murmurs Respiratory: No distress, CTA bilaterally, Chest nontender Abdomen: Soft, Nontender, Nondistended, Normal bowel sounds Back: Nontender, Normal Inspection. Negative for: CVA tenderness Extremities: Nontender, No edema Skin: Normal color, No rash Neurological: Alert, Oriented x3, Cranial nerves II-XII grossly intact, Normal Strength, Normal Sensation Psychological: Normal affect Diagnostic/Tx/Re-eval Impressions Abdomen/Pelvis CT 01/07/18 02:56 IMPRESSION: Moderate right hydroureteronephrosis is noted with associated renal swelling and stranding. No underlying obstructing ureter stone is seen, however. No bladder stones are seen. Findings are likely related to residual obstructive uropathy from a previously passed stone. Duodenal diverticulum. Electronically Signed: Ki Lyles MD at 3:41 EDT Tel , Service support , 01/07/18 02:56 Abdomen/Pelvis without Cont [CT] Stat Laboratory Results WBC 15.5 H RBC 4.62 - Medical Decision Making Labs are unremarkable, urine shows no infection but there is evidence of microscopic hematuria, CT shows hydronephrosis on the right, however there is no stone obstructing at this time, or signs of any other obstruction. There is some stranding, there is basically the appearance of a stone that was recently passed and there is no stone in the bladder. Patient was given analgesics and Zofran, she is feeling much better, with resolution of all symptoms. Will discharge with close outpatient follow-up if she has persistent symptoms, with urology. ED Disposition - Plan for ED Patient: Disposition: Home or Assisted Living Chief Complaint: Flank Pain Diagnosis: Renal colic on right side, Kidney stones Instructions: ED Stone Renal Passed Referrals: Roshan Farias MD [STAFF PHYSICIAN] - 3-5 Days if not improving What to do if you have Problems For any increased pain, shortness of breath, bleeding, nausea or vomiting, chest pain, or any unexpected problems, contact your Primary Care Provider. Call [facility] ([phone]) or report to the closest Emergency Room. Call 911 if necessary. 01/07/18 0424 <Electronically signed by Sandhya Estrada MD> Date Sandhya Estrada MD Cosigner Signature (If Indicated): Date CC: Billy Bhatti MD ABDOMEN/PELVIS WITHOUT Observed: 01/07/2018 Status: F Source: [place] CONT 2:57 AM [facility] REPOSITORY [facility] Imaging Services [address] [place] [address] Abdomen/Pelvis without Cont MR#: [id number] Acct: [id number] Name: RITTERCHERISE Rep #: [id number] : 1960 F 57 From: Ki Lyles MD PCP: Billy Bhatti MD Status: PRE ER Study: Abdomen/Pelvis without Cont Date of Exam: 01/07/18 Exam# [id number] Ordering Dr: Sandhya Estrada MD STUDY: CT ABDOMEN AND PELVIS WITHOUT CONTRAST REASON FOR EXAM: Female, 57 years old. Right flank pain RADIATION DOSAGE (If Supplied By Facility): CTDIvol = ( 18.87 ) mGy, DLP = ( 976.14 ) mGycm TECHNIQUE: Transaxial images were obtained from the dome of the diaphragm to the symphysis pubis without oral contrast, and without intravenous contrast. Sagittal and coronal images were reconstructed. # of Images: 486 Individualized dose optimization techniques were used for this CT. COMPARISON: 11/14/2016 FINDINGS: The visualized lung bases are unremarkable. The visualized portions of the heart are within normal limits. Normal liver. Normal gallbladder and extrahepatic biliary system. Normal spleen. Normal pancreas. Normal bilateral adrenal glands. Moderate right hydroureteronephrosis is noted with associated renal swelling and stranding. No underlying obstructing ureter stone is seen, however. No bladder stones are seen. Normal left kidney. Normal visualized stomach. 2 cm duodenal diverticulum. Normal colon. The appendix is visualized and appears normal. Normal abdominal aorta. Normal inferior vena cava. Normal retroperitoneum. Normal urinary bladder. Normal abdominal wall. Normal osseous structures. CT/Abdomen/Pelvis without Cont IMPRESSION: Moderate right hydroureteronephrosis is noted with associated renal swelling and stranding. No underlying obstructing ureter stone is seen, however. No bladder stones are seen. Findings are likely related to residual obstructive uropathy from a previously passed stone. Duodenal diverticulum. Electronically Signed: Ki Lyles MD at 3:41 EDT Tel , Service support , CC: SANDHYA ESTRADA MD; Billy Bhatti MD Nutritionists: Signed CBC W/DIFF, AUTOMATED Collected: 01/07/2018 Status: F Source: HIEN 2:52 AM [facility] REPOSITORY TYPE CODE TESTS RESULT OUT OF RANGE REFERENCE UNITS LAB L100.1000 4.4-11.0 K/mm3 High WBC 15.5 LAB L100.1200 4.2-5.4 M/mm3 Normal RBC 4.62 LAB L100.1300 12.0-15.0 g/dl Normal HGB 13.5 LAB L100.1400 37-47 % Normal HCT 40.6 LAB L100.1500 81-99 fL Normal MCV 87.9 LAB L100.1600 27.0-32.0 pg Normal MCH 29.2 LAB L100.1700 32-36 g/gl Normal MCHC 33.3 LAB L100.1810 11.6-14.6 % High RDW CV 15.5 LAB L100.1820 35.1-43.9 fl High RDW SD 50.3 LAB L100.1900 150-450 K/mm3 Normal PLT 311 LAB L100.2000 6.2-12.0 fl Normal MPV 9.2 LAB L100.2100 47-70 % High NEUT% 76.4 LAB L100.2200 19-41 % Low LY% 15.5 LAB L100.2300 0-10 % Normal MONO% 6.1 LAB L100.2400 0-5 % Normal EO% 1.2 LAB L100.2500 0-1 % Normal BASO% 0.3 LAB L100.2550 0.0-0.9 % Normal IM GRAN % 0.500 Result Comment: IG% - Immature Granulocytes (promyelocytes, myelocytes and metamyelocytes) > 1% indicates that a LEFT SHIFT is Present. LAB L100.2620 2.0-7.7 X10 3/uL High Absolute Neut 11.9 LAB L100.2720 0.83-4.51 X10 3/ul Normal Absolute Lymph 2.41 Performed By: #### L100.0100 #### [facility] [place], [address] URINALYSIS, COMPLETE Collected: 01/07/2018 Status: F Source: HIEN 2:52 AM [facility] REPOSITORY Order Comment: Order Date: 01/07/18 Has pt arrived? Y How was Urine Obtained? CLEAN CATCH TYPE CODE TESTS RESULT OUT OF RANGE REFERENCE UNITS LAB L400.3000 Yellow COLOR Normal Yellow LAB L400.3050 Clear Normal CLARITY Clear LAB L400.3200 Normal mg/dl Normal GLUCOSE, UR Normal LAB L400.3300 Negative mg/dL Normal BILIRUBIN URINE Negative LAB L400.3400 Negative mg/dl Normal KETONE UR Negative LAB L400.3465 1.002-1.030 Normal SP.GR. DIPSTX 1.030 LAB L400.3550 5.0 - 8.0 pH UR Normal 5.0 LAB L400.3600 Negative mg/dl High PROT DIPSTX 100 LAB L400.3700 Normal mg/dl Normal UROBILI Normal LAB L400.3750 Negative Normal NITRITE UR Negative LAB L400.3780 Negative /ul High OCCULT BLOOD-UR 150 LAB L400.3800 Negative /ul High LEUK 25 ESTERASE LAB L400.4050 0-5 /hpf WBC Normal 0-5 SEEN LAB L400.4100 0-5 /hpf 0 Normal RBC-UA SEEN LAB L400.4150 5-10 /hpf SQUAM Normal EPI 0-5 SEEN LAB L400.4300 None Seen /hpf 0 Normal BACTERIA SEEN LAB L400.4350 <or=2+ /hpf 0 Normal MUCUS, URINE SEEN LAB L400.4400 0-5 /lpf Normal HYALINE CAST 0-5 SEEN Performed By: #### L400.0001 #### [facility] [address] [place], [address] BASIC METABOLIC Collected: 01/07/2018 Status: F Source: GREAT NECK PROFILE ([facility]) 2:52 AM [facility] REPOSITORY TYPE CODE TESTS RESULT OUT OF RANGE REFERENCE UNITS LAB L501.0100 74-106 mg/dL High GLU 142 Result Comment: Fasting Glucose result greater than or equal to 126 mg/dL suggests DIABETES MELLITUS per A.D.A. criteria. Please note revised GLUCOSE reference range effective 2017. LAB L501.1000 7-18 mg/dL High BUN 22 LAB L501.1100 0.55-1.02 mg/dL Normal CREAT,SERUM 0.80 Result Comment: The validity of the calculated GFR AND GFRAA in patients over 70 years has not been determined. Clinical correlation is essential. LAB L501.1110 >60 mL/min Normal EST GFR 79 Result Comment: Non- GFR Calc LAB L501.1115 >60 mL/min Normal EST GFR - AA 96 Result Comment: GFR Calc LAB L501.1255 ml/min Normal Estimated CRCL 70.66 LAB L501.1300 10-20 RATIO High BUN/CRE 27.7 LAB L501.2200 8.5-10 mg/dL Normal .1 CA 8.7 LAB L501.5300 136-14 mmol/L Normal 5 NA 140 LAB L501.5600 3.5-5. mmol/L Normal 1 K 3.8 LAB L501.5900 98-107 mmol/L Normal CL 104 LAB L501.6100 21.0-3 mmol/L Normal 2.0 CO2 29.0 LAB L501.6200 5-15 Normal GAP 7 Performed By: #### L500.2500 #### [facility] [address] [place], [place], [address] Observed: 12/12/2017 Status: F Source: GREAT NECK CULTURE, URINE 4:00 PM [facility] REPOSITORY Urine Culture ORGANISM 1: Klebsiella pneumoniae sp pneum [place] Count >100,000 Klebsiella pneumoniae sp pneum: REACTION Amoxacillin/Clavulanic Acid $ <=2 S Ampicillin $ >=32 R Ampicillin/Sulbactam $ 4 S Cefazolin $ <=4 S Cefepime $ <=1 S Ceftriaxone $ <=1 S Ciprofloxacin $ <=0.25 S ESBL - Ertapenim $$$ <=0.5 S Gentamicin $ <=1 S Imipenem *NF <=0.25 S Levofloxacin $ 0.5 S Nitrofurantoin $ 128 R Piperacillin/Tazobactam $$ <=4 S Tobramycin $ <=1 S Trimethoprim/Sulfametho $ <=20 S (NF) indicates non-formulary drug at [facility]. Approval by Infectious Disease Specialist required before non-formulary drugs may be ordered and/or dispensed. Performed By: #### M100.0650 #### [facility] [address] [place], [place], [address] CARDIOLOGY VISIT Observed: 09/21/2017 Status: F Source: GREAT NECK REPORT 4:29 PM [facility] REPOSITORY [facility] [address] [place] [address] OFFICE VISIT Date of Service: 09/21/17 MR#: [id number] Acct: [id number] Name: CHERISE RITTER Rep #: [id number] : 1960 Provider: Chava Price MD Age/Sex: 57/F Location: [facility] [place] Status: Signed HPI HPI Chief Complaint: Follow up Details: CHERISE RITTER, is a 57 F who presents to the office today for a follow-up visit. 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 She has done well since then she denies any chest pain or shortness breath or paroxysmal nocturnal dyspnea or pedal edema she has not had any recurrence of the above. An echocardiogram that was performed in september 2016 demonstrated an ejection fraction of 60% with no wall motion of normalities and no evidence of tricuspid regurgitation. Physical exam demonstrates clear lung rodriguez regular rate and rhythm and no pedal edema. Intake Vital Signs09/21/17 Height 5 ft 5 in 09/21/17 Weight: 195 lb 09/21/17 Body Mass Index (BMI) 32.4 09/21/17 Blood Pressure 128/74 09/21/17 Blood Pressure Location Lt brachial Intake Visit Reasons: 6 M FU needs 4:00 time [employer] Machine Operator Required: No Is patient in pain?: No Allergies erythromycin base Adverse Reaction (Severe, Verified 09/21/17 16:01) Upset Stomach Medications Ramipril [Ramipril] 2.5 mg PO DAILY 02/12/15 [History Confirmed 09/21/17] Simvastatin [Simvastatin] 20 mg PO QHS 02/12/15 [History Confirmed 09/21/17] Multivit with Calcium,Iron,Min [Multiple Vitamins For Women] 1 ea PO DAILY 09/08/16 [History Confirmed 09/21/17] pioglitazone 30 mg tablet 30 mg PO DAILY 09/21/17 [History Confirmed 09/21/17] Ejection fraction %: 60 to 64 PFSH Medical History Postoperative atrial fibrillation (Chronic) Hypertension (Chronic) History of lobectomy of lung (Acute) Hyperlipidemia (Acute) Left lower lobe resection (Acute) Lung cancer (Acute) Type 2 diabetes mellitus (Acute) Surgical History History of thoracotomy (Acute) Family History Mother Sleep apnea Heart disease Diabetes Anemia Arthritis Father Hypertension Arthritis Alzheimer's disease Social History Smoking Status: Former smoker alcohol intake: current details: occasional ROS Const Const: Negative for fatigue, weakness, night sweats, excessive sweating, frequent falls, headache(s) or daytime sleepiness Eyes Eyes: Negative for loss of peripheral vision, transient loss of vision, blind spots, double vision or blurry vision ENT ENT: Negative for headache(s), dizziness, balance problems, Nosebleed/epistaxis, tongue swelling or lip swelling Cardio Chest Pain: No Palpitations: No Edema: None Muscle aches with walking: None Resp Respiratory: Negative for SOB at rest, SOB orthopnea\SOB lying down, Cough, paroxysmal nocturnal dyspnea or SOB with activity GI GI: Negative nausea, vomiting, heartburn, black,tarry stools or bright, red blood in stools : Negative for hematuria Musc Musc: Negative for balance problems, muscle aches/ myalgia, muscle weakness or joint pain Skin Skin: Negative non-healing lesions, unusual bruising or rash Neuro Neuro: Negative for weakness, frequent falls, headache(s), double vision, dizziness, lightheadedness, orthostatic symptoms, blurry vision or lack of coordination Artur Hematologic/Lymphatic: Negative for easy bruising or easy bleeding Endo Endo: Negative for fatigue, excessive sweating, cold intolerance, heat intolerance, increased thirst/drinking or hair loss Psych Psych: Negative for anxiety or depression Allergy Allergy/Immunology: Negative for throat swelling, Negative for tongue swelling, Negative for hives, Negative for rash, Negative for lip swelling Cardiology Exam Const Appearance: cooperative, healthy appearing, well developed, well groomed and no acute distress Nutritional Appearance: well nourished and average body habitus Orientation: alert, awake and oriented x3 Head Head: normal to inspection, normocephalic and atraumatic Ears: hearing grossly normal bilaterally and external ears normal Nose: external nose normal, nasal mucous membranes and turbinates normal, nares normal, septum normal, no nasal discharge Face and Sinus: face symmetric Mouth: oral mucosae normal, tongue normal, oropharynx normal and moist mucous membranes Teeth and gingiva: dentition normal Throat: posterior oropharynx normal, tonsils normal and uvula midline Eyes General: appearance normal, both eyes and all related structures Eyelids: eyelids normal Conjunctivae: conjunctivae normal Pupils: PERRL, normal by confrontation and accommodation normal EOM: EOM intact bilaterally Neck Neck: normal visual inspection, trachea midline and no JVD JVD: +5 Carotids: normal carotid upstroke and bounding pulses Chest Chest inspection: normal inspection of the chest, symmetric chest movement and normal respiratory effort Auscultation: Bilateral: Clear to Auscultation Cardio Palpation: normal PMI Rate: regular rate Rhythm: regular rhythm Heart sounds: S1 normal, S2 normal and normal, physiologic split S2; negative rub, gallop or murmur GI GI: normal to inspection, soft, no hepatosplenomegaly and bowel sounds present Neuro General: alert, awake, oriented x3, no focal sensory deficit, gait normal and moves all extremities Skin Skin: no rashes or lesions noted Extremities Pulses: Normal: Right Femoral Pulse, Left Femoral Pulse, Right Dorsalis Pedis Pulse, Left Dorsalis Pedis Pulse, Right Posterior Tibial Pulse, Left Posterior Tibial Pulse, Right Radial Pulse, Left Radial Pulse Lower Extremity Edema: None: Bilateral Musculoskel Musculoskeletal: No joint tenderness Psych Psychological: normal affect Assessment AND Plan 1. Postoperative atrial fibrillation I97.89; I48.91 Plan She appears to have had an episode of postoperative atrial fibrillation. She is [place] in sinus rhythm and has maintained this for over a year. My recommendation would be to continue follow-up through your outfit. I do not think there is any reason to make any changes. Thank you for allowing me to participate in the care of your patient. Please don't hesitate to call if any issues arise Plan Detail Follow Up prn Coding Level of Care Code Off vis,est,level 3 Diagnoses Postoperative atrial fibrillation I97.89; I48.91 Coding Level of Care Code Off vis,est,level 3 Diagnoses Postoperative atrial fibrillation I97.89; I48.91 09/21/17 0612 <Electronically signed by Chava Price MD> Date Chava Bar Signature: Date (if applicable) CC: Billy Bhatti URINALYSIS, ROUTINE Collected: 08/12/2017 Status: F Source: HIEN (DIPSTICK) 8:22 AM [facility] REPOS[facility] Order Comment: How was Urine Obtained? CLEAN CATCH TYPE CODE TESTS RESULT OUT OF RANGE REFERENCE UNITS LAB L400.3000 Yellow COLOR Normal Yellow LAB L400.3050 Clear Sl Normal CLARITY Cldy LAB L400.3200 Normal mg/dl Normal GLUCOSE, UR Normal LAB L400.3300 Negative mg/dL Normal BILIRUBIN URINE Negative LAB L400.3400 Negative mg/dl Normal KETONE UR Negative LAB L400.3465 1.002-1.030 Normal SP.GR. DIPSTX 1.010 LAB L400.3550 5.0 - 8.0 pH UR Normal 7.0 LAB L400.3600 Negative mg/dl PROT Normal DIPSTX Negative LAB L400.3700 Normal mg/dl Normal UROBILI Normal LAB L400.3750 Negative High NITRITE UR Positive LAB L400.3780 Negative /ul High 25 OCCULT BLOOD-UR LAB L400.3800 Negative /ul LEUK Normal ESTERASE Negative Performed By: #### L400.2010 #### [facility] [address] [place], [place], [address] HEMOGLOBIN A1C Collected: 08/12/2017 Status: F Source: HIEN 8:22 AM [facility] RE[facility] TYPE CODE TESTS RESULT OUT OF RANGE REFERENCE UNITS LAB L501.9985 4.2-6.3 % High HGB A1C 6.4 Performed By: #### L501.9985 #### [facility] [address] [place], [address] COMPREHENSIVE METABOLIC Collected: 08/12/2017 Status: F Source: HIEN PROFIL 8:22 AM [facility] RE[facility] TYPE CODE TESTS RESULT OUT OF RANGE REFERENCE UNITS LAB L501.0100 74-106 mg/dL Normal GLU 104 Result Comment: Fasting Glucose result from 100 to 125 mg/dL suggests IMPAIRED HOMEOSTASIS per A.D.A. criteria. Please note revised GLUCOSE reference range effective 2017. LAB L501.1000 7-18 mg/dL Normal BUN 15 LAB L501.1100 0.55-1.02 mg/dL Normal CREAT,SERUM 0.63 Result Comment: The validity of the calculated GFR AND GFRAA in patients over 70 years has not been determined. Clinical correlation is essential. LAB L501.1110 >60 mL/min Normal EST GFR 104 Result Comment: Non- GFR Calc LAB L501.1115 >60 mL/min Normal EST GFR - AA 126 Result Comment: GFR Calc LAB L501.1300 10-20 RATIO High BUN/CRE 23.8 LAB L501.1500 6.4-8.2 g/dL T Normal PROT 7.1 LAB L501.1800 3.2-5.0 g/dL Low ALB 3.0 LAB L501.1950 2.2-4.2 g/dL Normal GLOB 4.1 LAB L501.2000 0.9-2.4 RATIO Low A/G 0.7 LAB L501.2200 8.5-10.1 mg/dL CA Normal 8.7 LAB L501.4100 15-37 U/L Low AST 13 LAB L501.4305 45-117 U/L Normal ALK P 95 LAB L501.4405 13-56 U/L Normal ALT 17 LAB L501.4600 0.20-1.00 mg/dL T Normal BILI 0.30 LAB L501.5300 136-145 mmol/L NA Normal 140 LAB L501.5600 3.5-5.1 mmol/L K Normal 4.1 LAB L501.5900 98-107 mmol/L CL Normal 106 LAB L501.6100 21.0-32.0 mmol/L Normal CO2 29.0 LAB L501.6200 5-15 Normal GAP 5 Performed By: #### L500.4050, L500.4100 #### [facility] [address] [place], [place], [address] LIPID PROFILE Collected: 08/12/2017 Status: F Source: HIEN 8:22 AM [facility] TYPE CODE TESTS RESULT OUT OF RANGE REFERENCE UNITS LAB L501.4900 200 mg/dL Normal CHOL 122 Result Comment: <200 mg/dL Desirable 200-240 mg/dL Borderline >240 mg/dL High Risk LAB L501.5000 mg/dL Normal TRIG 99 Result Comment: The drugs N-Acetylcysteine and Metamizole may falsely depress this assay. Serum Triglycerides Reference Interval Normal <150 mg/dL Borderline high 150 - 199 mg/dL High 200 - 499 mg/dL Very High > or = 500 mg/dL LAB L501.6400 mg/dL Normal HDL 40 Result Comment: The drugs N-Acetylcysteine and Metamizole may falsely depress this assay. Reference Range HDL <40 mg/dL Low HDL Cholesterol HDL >or= 60 mg/dL High HDL Cholesterol LAB L501.6500 0-130 mg/dL Normal LDL 62 LAB L501.6600 5-40 mg/dL Normal VLDL 20 Performed By: #### L500.4050, L500.4100 #### [facility] [address] [place], [address] ONCOLOGY VISIT REPORT Observed: 06/14/2017 Status: F Source: HIEN 4:32 PM [facility] [facility] [place] [address] OFFICE VISIT Date of Service: 06/14/17 1618 MR#: [id number] Acct: [id number] Name: CHERISE RITTER Rep #: [id number] : 1960 From: Malcom Marina MD Age/Sex: 57/F Location: D Status: Signed Subjective - Date of Service Date of Service:: 06/14/17 - Chief Complaint F/u for lung carcinoid tumor. - History of Present Illness 57y.o.woman with h/o L lung nodule over the last 12yrs which increased in size on a CT chest done on 06/04/2016, 2cm nodule. She was referred to [facility] in [place], had L thoracotomy and L lower lobe resection on 08/16/2016 for Carcinoid tumor. Chromogranin level on was 2. She is on observation, comes for follow up after CT. She feels well. - Past Medical/Social History Past Medical History Past Medical History: Diabetes mellitus,Hyperlipidemia Cancer: Lung cancer Past Surgical History Surgical: Lobectomy Other Surgical History: Thoracotomy Wedge resection Lobectomy of lung Diagnostic laparoscopoy Family History Paternal Past Medical History: Alzheimer's disease,Arthritis,Hypertension Maternal Past Medical History: Anemia,Arthritis,Diabetes mellitus,Headaches, Heart disease,Sleep apnea Social History Smoking Status Former smoker Review of Systems Constitutional:: Denies: Fever, Sweats, Weight loss, Appetite change, Chills Cardiovascular:: Denies: Chest pain, Palpitations, Dyspnea on exertion, Orthopnea, PND, Shortness of breath Respiratory: Denies: Cough, Hemoptysis, Shortness of Breath, Wheezing Gastrointestinal:: Denies: Abdominal pain, Nausea, Vomiting, Diarrhea, Constipation, Hematochezia Genitourinary: Denies: Dysuria, Hematuria, 15, Flank pain Musculoskeletal:: Denies: Back pain, Myalgia, Arthralgia Skin: Denies: Rash, Skin Changes, Wounds Neurological:: Denies: Headache, Dizziness, Visual changes, Tinnitus, Hearing loss Psychiatric: Denies: Anxiety, Depression, Homicidal Ideations, Suicidal Ideations Vital Signs Height 5 ft 5.5 in Weight: 90.718 kg Weight in Pounds 200.0 lbs Pulse Ox 99 - Physical Exam General: Alert, Oriented x3, No apparent distress HEENT: Atraumatic, PERRLA, EOMI, Normocephalic Oropharynx:: Dry mucosa Neck:: Supple, Trachea midline. Negative for: JVD, bilateral Cardiac:: Regular rate, Regular rhythm, Normal S1, Normal S2. Negative for: Murmur Lungs: Clear to auscultation, Excusion symmetrical. Negative for: Rhonchi, Wheezes Diagnostic Data: 06/12/2017 CT chest reviewed, Left lower lobectomy, no new changes. 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 Plan is to continue observation. RTC [address] chest minus. Medications: Prescriptions This Visit Medication Instructions Recorded Multivit with Calcium,Iron,Min 1 each PO DAILY 09/08/16 [Multiple Vitamins For Women] Primary Care Provider: Billy Bhatti Referring Provider: - Problem List (1) Carcinoid tumor of left lung Status: Resolved Code Visit Office Visits / Consults: 45697 OV L3 Est 06/14/17 1632 <Electronically signed by Malcom Marina MD> Date Malcom Marina MD Cosigner Signature: Date (if applicable) CC: CREATININE FINGERSTICK Collected: 06/12/2017 Status: F Source: GREAT NECK 4:14 PM [facility] REPOS[facility] TYPE CODE TESTS RESULT OUT OF RANGE REFERENCE UNITS LAB L9100.0210 0.55-1.02 mg/dL Normal CREATININE WB 0.8 LAB L9100.0220 >60 mL/min EGFR WB Normal > 60.0000 Performed By: #### L9100.0200 #### [facility] Point of Care [address] [place] [address] CHEST WITH CONTRAST Observed: 06/12/2017 Status: F Source: GREAT NECK 3:52 PM [facility] REPOSITORY [facility] [address] [place] [address] Chest WITH Contrast MR#: [id number] Acct: [id number] Name: CHERISE RITTER Alisha Rep #: [id number] : 1960 F 57 From: Shashank Saldivar DO PCP: Billy Bhatti Status: REG CLI Study: Chest WITH Contrast Date of Exam: 06/12/17 Exam# [id number] Ordering Dr: Malcom Marina MD STUDY: CT CHEST WITH CONTRAST REASON FOR EXAM: Female, 57 years old. 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 RADIATION DOSAGE (If Supplied By Facility): CTDIvol = ( 16.23 ) mGy, DLP = ( 564.40 ) mGycm TECHNIQUE: Transaxial imaging was performed following intravenous administration of 100CC ml of Isovue 300 contrast material. Multiplanar coronal and sagittal images were reformatted. Individualized dose optimization techniques were used for this CT. COMPARISON: CT of the chest, June 04, 2016. FINDINGS: The lungs are are mildly hyperexpanded. There is evidence of left lower lobectomy There is no focal mass or infiltrate within the lungs. There is no demonstrated pleural abnormality. Normal heart and pericardium. Normal mediastinum. Normal hilar regions. Normal enhanced pulmonary arteries. Normal aorta arch and descending thoracic aorta. There are multi-level degenerative changes of the thoracic spine. There is no demonstrated abnormality of the visualized upper abdomen. CT/Chest WITH Contrast IMPRESSION: 1. Left lower lobe lobectomy with removal of the lower lobe mass seen on the prior study. 2. No other interval change. Electronically Signed: Shashank Saldivar DO at 16:59 EDT Tel [phone], Service support , CC: Billy Bhatti; Malcom Marina MD Nutritionists: Signed ALLERGIES ALLERGIES DATE TYPE / CODE NAME / CODE REACTION SEVERITY SOURCE 03/04/2018 Drug erythromycin Upset Stomach SV [place] [facility]/416 base/[id number](RXN Community 031881([facility] ED CT) Repository ENCOUNTERS ENCOUNTERS ADMIT/DISCHARGE ACCOUNT ADMITTING ENCOUNTER LOCATION SOURCE NUMBER CLASS 04/02/2018 [id number] Ambulatory [facility] [place] 5 [facility] ing:OPBI Repository 03/04/2018/ [id number] Emergency [facility] 8 5 [facility] ing:ED Repository 02/11/2018 [id number] Ambulatory [place] [facility] 3 [facility] ing:LAB Repository 01/29/2018 [id number] Ambulatory [facility] 1 [facility] [place] g:H.ELS Repository 01/22/2018 [id number] Ambulatory [facility]ien [place] 7 [facility] ing:LAB Repository 01/07/2018/ [id number] Emergency [place] [facility] 8 9 [facility] ing:ED Repository 12/12/2017 [id number] Ambulatory [place] [facility] 7 [facility] ing:LABSPEC Repository 09/21/2017/ [id number] Ambulatory BMSBuilding:B Hien 8 6 [facility] Repository 09/19/2017 [id number] Ambulatory BMSBuilding:B [facility] 4 [facility] Repository 09/08/2017 [id number] Ambulatory BMSBuilding:B [facility] 0 [facility] Repository 08/12/2017 [id number] Ambulatory [facility]ien [facility] 1 [facility] ing:LAB Repository 06/14/2017 [id number] Ambulatory [place] [facility]ien 9 [facility] ing:OMD Repository 06/14/2017 [id number] Ambulatory BMSBuilding:B [place] 2 MS.[facility] Repository 06/12/2017 [id number] Ambulatory [place] [facility] 7 [facility] ing:CT Repository PAYERS PAYERS ENCOUNTER GUARANTOR PAYER SUBSCRIBER SOURCE 04/02/2018 CHERISE Brito Primary CHERISE R Hien [id number] S Insurance:ANTHEMPolic ARMSTRONGDOB: [facility] y Number: [id number] [id number] Repository [address]Pcm: (330) Date:5570-90-91KS [phone] () [id number], [place] [address]TI: 04/02/2018 Secondary NOT GIVENUNK [place] Insurance:SELF PAY [facility] Number: Effective Repository Date:2018-02-07 03/04/2018 CHERISE Brito Primary CHERISE R [place] [id number] S Insurance:ANTHEMPolic ARMSTRONGDOB: [facility] y Number: [id number] [id number] Repository [address]Kyq: (330) Date:8445-59-24YA [phone] () [id number], [place] [address]MA: 03/04/2018 Secondary NOT GIVENUNK [place] Insurance:SELF PAY [facility] Number: Effective Repository Date:2018-03-04 02/11/2018 CHERISE R Primary CHERISE R [facility] [id number] S Insurance:ANTHEMPolic ARMSTRONGDOB: Community [place] y Number: [id number], [place] [id number] Repository [address]Nfs: (330) Date:8481-32-05KJ [phone] () [id number], [place] [address]KQ: 02/11/2018 Secondary NOT GIVENUNK Hien Insurance:SELF PAY [facility] Number: Effective Repository Date:2018-02-11 01/29/2018 CHERISE Primary CHERISE R [facility] [id number] Insurance:[facility] Number: Repository [place], [place] [id number] [address]Smb: (330) Date:2016-04-16 [id number] () 01/22/2018 CHERISE R Primary CHERISE R [place] [id number] S Insurance:ANTHEMPolic ARMSTRONGDOB: Community [place] y Number: [id number], [place] [id number] Repository [address]Xci: (330) Date:2482-18-29SE [phone] () [id number] [place] [address]GE: 01/22/2018 Secondary NOT GIVENUNK Hien Insurance:SELF PAY [facility] Number: Effective Repository Date:2018-01-22 01/07/2018 Cherise R Primary Cherise R Hien [id number] S Insurance:ANTHEMPolic ArmstrongDOB: [place] y Number: [id number], [place] [id number] Repository [address]Pfw: (330) Date:7227-63-28NQ [phone] () [id number] [place] [address]KY: 01/07/2018 Secondary NOT GIVENUNK [place] Insurance:SELF PAY [facility] Number: Effective Repository Date:2018-01-07 12/12/2017 Cherise R Primary Cherise R [place] [id number] S Insurance:ANTHEMPolic ArmstrongDOB: [place] y Number: [id number], [place] [id number] Repository [address]Vun: (330) Date:4806-95-33SS [phone] () [id number] [place] [address]ZK: 12/12/2017 Secondary NOT GIVENUNK [place] Insurance:SELF PAY [facility] Number: Effective Repository Date:2017-12-12 09/21/2017 Cherise R Primary Cherise R [place] [id number] S Insurance:ANTHEMPolic ArmstrongDOB: [place] y Number: [id number], [place] [id number] Repository [address]Wqn: (330) Date:0783-19-33ZH [phone] () [id number] [place] [address]DI: 09/21/2017 Secondary NOT GIVENUNK Hien Insurance:SELF PAY [facility] Number: Effective Repository Date:2017-09-21 09/19/2017 Cherise R Primary Cherise R [place] [id number] S Insurance:ANTHEMPolic ArmstrongDOB: Community [place] y Number: [id number], [place] [id number] Repository [address]Atj: (330) Date:8403-69-54OX [phone] () [id number], [place] [address]EL: 09/19/2017 Secondary NOT GIVENUNK Hien Insurance:SELF PAY [facility] Number: Effective Repository Date:2017-09-19 09/08/2017 Cherise R Primary Cherise R Hien [id number] S Insurance:ANTHEMPolic ArmstrongDOB: Community [place] y Number: [id number], [place] [id number] Repository [address]Gyf: Date:7780-89-43AC [phone] [id number], [place] 0-2 (HP) [address]VW: 09/08/2017 Secondary NOT GIVENUNK Hien Insurance:SELF PAY [facility] Number: Effective Repository Date:2017-02-20 08/12/2017 Cherise R Primary Cherise R Hien [id number] S Insurance:ANTHEMPolic ArmstrongDOB: Community [place] y Number: [id number], [place] [id number] Repository [address]Rdp: Date:8016-76-16JS [phone] [id number], [place] 0-2 (HP) [address]EZ: 08/12/2017 Secondary NOT GIVENUNK Hien Insurance:SELF PAY [facility] Number: Effective Repository Date:2017-08-12 06/14/2017 Cherise R Primary Cherise R [place] [id number] S Insurance:ANTHEMPolic ArmstrongDOB: Community [place] y Number: [id number], [place] [id number] Repository [address]Cxi: Date:4034-77-91Hi [phone] [id number], [place] 0-2 (HP) [address]UM: 06/14/2017 Secondary NOT GIVENUNK Hien Insurance:SELF PAY [facility] Number: Effective Repository Date:2016-09-13 06/14/2017 Cherise R Primary Cherise R Hien [id number] S Insurance:ANTHEMPolic ArmstrongDOB: [place] Number: [id number] [id number] Repository [address]Xvc: Date:[id number] [phone] [id number], [place] 0-2 (HP) [id number]: 06/14/2017 Secondary NOT GIVENUNK Hien Insurance:SELF PAY [facility] Number: Effective Repository Date:2017-06-14 06/12/2017 Cherise Brito Primary Cherise Stanford [id number] Insurance:ANTHEMPolic ArmstrongDOB: [facility] [place] Number: [id number], [place] [id number] Repository [address]Dgo: Date:[id number] [phone] [id number], [place] 0-2 () [address]UK: 06/12/2017 Secondary NOT GIVENNIKKY Stanford Insurance:SELF PAY [facility] Number: Effective Repository Date:2016-12-14
== END 2018-03-04 18:21 | disposition home or self-care (01) ==
LOC: ED 18:09
PROVIDERS: Emergency Provider Emergency Medicine; Family Provider Family Medicine; PCP Family Medicine
DX: L50.9 Urticaria, unspecified (principal); E11.9 Type 2 diabetes mellitus without complications; E78.00 Pure hypercholesterolemia, unspecified; G25.81 Restless legs syndrome; G47.30 Sleep apnea, unspecified
CPT/HCPCS: 99283

== ENCOUNTER → 2018-04-02 16:03 | Outpatient (CLI) | payer BC, SELFPAY ==
[2018-03-04 17:36] VITALS: BMI 34.5
--- NOTE | 2018-04-02 16:08 | BI_ITS ---
MAMMOGRAPHY - BILATERAL SCREENING REASON FOR EXAM: Female, 58 years old. Routine annual screening examination. PERTINENT HISTORY: Non-contributory. TECHNIQUE: Digital bilateral breast ana (3D mammographic acquisition) in the CC and MLO projections. 2-D mediolateral oblique (MLO) and craniocaudad (CC) views of both breasts were obtained. CAD: Full Field Digital Mammography with Computer Added Detection was performed. COMPARISON: Comparison is made with prior study dated February 24, 2017 and August 25, 2014. FINDINGS: Breast Composition: The breasts are almost entirely fatty. There are no dominant masses or suspicious calcifications. No other significant abnormalities are identified. There has been no significant change since the prior study. BI/SCREENING MAMM (CAD), BILAT IMPRESSION: Stable bilateral screening mammogram. Yearly follow-up mammogram recommended. (A) ASSESSMENT CATEGORY: BIRADS Category 1: Negative. A letter regarding these results will be sent to the patient by the facility within 30 days. Approximately 10% of breast cancers are not detected by mammography. A normal mammogram should not delay biopsy of a clinically suspicious abnormality. [id number] Electronically Signed: Adin Posadas MD at 11:02 EST Tel [phone], Service support ,
== END ==
PROVIDERS: Family Provider Family Medicine; PCP Family Medicine; Referring Provider Family Medicine; Visit Provider Family Medicine
DX: Z12.31 Encounter for screening mammogram for malignant neoplasm of breast (principal)
CPT/HCPCS: 77063; 77067

== ENCOUNTER → 2018-06-11 16:59 | Outpatient (CLI) | payer BC, SELFPAY ==
--- NOTE | 2018-06-11 17:01 | CT_ITS ---
STUDY: CT CHEST WITHOUT CONTRAST REASON FOR EXAM: Female, 58 years old. Lung cancer follow-up RADIATION DOSAGE (If Supplied By Facility): CTDIvol = ( 16.11 ) mGy, DLP = ( 567.49 ) mGycm TECHNIQUE: Transaxial imaging was performed without the administration of intravenous contrast material. Individualized dose optimization techniques were used for this CT. COMPARISON: CT chest 06/12/2017. FINDINGS: There is an inferior left thyroid lobe nodule measuring 2.1 x 1.8 cm and the posterior right thyroid lobe nodule extending into the superior mediastinum measuring 1.8 x 1.3 cm. Again seen is left lower lobectomy with stable postsurgical changes. No focal pulmonary consolidation. There are stable scattered nodules and nodular opacities, for example posterior right upper lobe groundglass nodule on series 4 image 19 measuring 6 mm. Stable 3 mm peripheral right upper lobe nodular opacity on image 31. 4 mm right middle lobe nodule on image 77. No new or enlarging pulmonary nodule. Mild centrilobular emphysema. There is no demonstrated pleural abnormality. Normal heart and pericardium. Trace coronary artery calcifications. Normal mediastinum. Normal hilar regions. Normal unenhanced pulmonary arteries. There are mild aortic calcifications. There are mild degenerative changes of the spine. There is no demonstrated abnormality of the visualized upper abdomen. CT/Chest without Contrast IMPRESSION: No interval change since 06/12/2017. No new or enlarging pulmonary nodule or focal consolidation. Stable postsurgical changes related to prior left lower lobectomy. Bilateral thyroid nodules measuring up to 2.1 x 1.8 cm on the left. Thyroid ultrasound can be obtained if not already performed. Electronically Signed: Geni Evans, at 10:47 EDT Tel , Service support ,
== END ==
PROVIDERS: Family Provider Family Medicine; PCP Family Medicine; Referring Provider Internal Medicine Medical Oncology; Visit Provider Internal Medicine Medical Oncology
DX: D3A.090 Benign carcinoid tumor of the bronchus and lung (principal)
CPT/HCPCS: 71250

== ENCOUNTER → 2018-08-04 08:20 | Outpatient (CLI) | payer BC, SELFPAY ==
[2018-06-13 16:13] VITALS: BMI 35.7
[2018-08-04 09:45] LABS: AST(SGOT) 15 U/L (15-37); Alanine Aminotransfer ALT/SGPT 20 U/L (13-56); Albumin, Serum 3.1 g/dL (3.2-5.0); Alkaline Phosphatase 92 U/L (45-117); Bilirubin, Direct 0.09 mg/dL (0.00-0.30); Cholesterol 144 mg/dL (200); Globulin 4.1 g/dL (2.2-4.2); High Density Lipoprotein 49 mg/dL; Protein, Total 7.2 g/dL (6.4-8.2); Triglycerides 85 mg/dL; Very Low Density Lipoprotein 17 mg/dL (5-40)
[2018-08-04 09:48] LABS: Hemoglobin A1c 6.6 % (4.2-6.3)
== END ==
PROVIDERS: Family Provider Family Medicine; PCP Family Medicine; Referring Provider Family Medicine; Visit Provider Family Medicine
DX: E78.00 Pure hypercholesterolemia, unspecified (principal); E11.9 Type 2 diabetes mellitus without complications
CPT/HCPCS: 36415; 80061; 80076; 83036

== ENCOUNTER → 2019-01-15 17:00 | Outpatient (CLI) | payer BC, SELFPAY ==
[2018-06-13 16:13] VITALS: BMI 35.7
== END ==
PROVIDERS: Family Provider Family Medicine; PCP Family Medicine
DX: R31.9 Hematuria, unspecified (principal)
CPT/HCPCS: 87086; 87088; 87186

== ENCOUNTER → 2019-02-09 08:27 | Outpatient (CLI) | payer BC, SELFPAY ==
[2018-06-13 16:13] VITALS: BMI 35.7
--- NOTE | 2019-02-09 | FLU_PTH ---
PATIENT: LIZZY RITTER LOC: [facility] U#:[id number] AGE/SX: 65/F ROOM: RE02/09/[address]: JESSE Mata : 1960 BED: DIS: SPEC #: [id number] RECD: 02/09/19 08:37 STATUS: MUNA FAINA #: [id number] HARJIT: 02/09/19 00:[address]: Raquel Bennett NP DEPT: CYTOLOGY RECD BY: Henny Kaufman ENTERED: 02/11/19 10:57 SP TYPE: Fluid OTHR DR: Dr. Billy Bhatti MD Tissues: Urine Procedures: Special Stain Group II Cytospin Fluid HEADER OPERATION: Not noted PRE-OP DIAGNOSIS: Microhematuria TISSUE SUBMITTED: Urine for cytology DIAGNOSIS CYTOLOGY Urine for cytology (cytospin): Negative for malignant cells. See comment. AM:stephanie 02/12/19 COMMENT The specimen primarily contains squamous epithelial cells. Clinical correlation is suggested. CYTOLOGY STUDY Slides are reviewed. CYTOLOGY GROSS Received is 110 ml of cloudy urine labeled with the patient's name and and designated per the requisition as urine. Submitted for cytology preparation. /CC:cc 02/11/19 TC:5 CPT: 94749
[2019-02-09 08:39] LABS: Bacteria 0 SEEN /hpf (None Seen); Cytology, Body Fluid / CSF SEE PATHOLOGY REPORT; Mucous, Urine 0 SEEN /hpf (<or=2+); White Blood Cells 0 SEEN /hpf (0-5)
[2019-02-09 08:55] LABS: Absolute Neutrophil Count 6.2 X10^3/uL (2.0-7.7); Basophil# 0.05 X10^3/uL; Basophil% 0.5 % (0-1); Eosinophil# 0.26 X10^3/uL; Eosinophils% 2.8 % (0-5); Hematocrit 42.7 % (37-47); Hemoglobin 13.8 g/dL (12.0-15.0); Lymphocyte % 22.4 % (19-41); Mean Corp Hgb Conc 32.3 g/dL (32-36); Mean Corpuscular Volume 89.7 fL (81-99); Mean Platelet Vol. 9.1 fl (6.2-12.0); Monocyte# 0.72 X10^3/uL; Monocyte% 7.7 % (0-10); NRBC Flagged by Analyzer 0 % (0-5); Neutrophil % 66.3 % (47-70); Platelet Count 284 K/mm3 (150-450); RBC Distribution Width CV 15.5 % (11.6-14.6); RBC Distribution Width SD 50.7 fl (35.1-43.9); Red Blood Count 4.76 M/mm3 (4.2-5.4); White Blood Count 9.4 K/mm3 (4.4-11.0)
[2019-02-09 08:59] LABS: Color, Urine Yellow (Yellow); Glucose, Dipstick Normal (Normal); Ketone-Dipstick Negative (Negative); Leukocyte Esterase-Dipstick Negative /ul (Negative); Nitrite-Dipstick Negative (Negative); Occult Blood-Urine 50 /ul (Negative); Protein-Dipstick Negative (Negative); Urine Bilirubin Dipstick Negative (Negative); Urine Clarity Clear (Clear); Urine Urobilinogen Normal (Normal)
[2019-02-09 09:20] LABS: ALB/GLOB Ratio 0.8 RATIO (0.9-2.4); AST(SGOT) 16 U/L (15-37); Alanine Aminotransfer ALT/SGPT 19 U/L (13-56); Albumin, Serum 3.3 g/dL (3.2-5.0); Alkaline Phosphatase 89 U/L (45-117); BUN 21 mg/dL (7-18); BUN/Creat Ratio 27.9 RATIO (10-20); Cholesterol 154 mg/dL (200); Creatinine, Serum 0.75 mg/dL (0.55-1.02); EST Glomerular Filtration Rate 84 mL/min (>60); Est Glom Filt Rate - Afr Amer 102 mL/min (>60); Globulin 4.1 g/dL (2.2-4.2); Glucose 116 mg/dL (74-106); Protein, Total 7.4 g/dL (6.4-8.2); Triglycerides 95 mg/dL
[2019-02-09 09:21] LABS: Anion Gap 3 (5-15); Chloride 106 mmol/L (98-107); High Density Lipoprotein 52 mg/dL; Potassium 4.2 mmol/L (3.5-5.1); Sodium Level 140 mmol/L (136-145); Very Low Density Lipoprotein 19 mg/dL (5-40)
[2019-02-09 09:33] LABS: Hemoglobin A1c 6.2 % (4.2-6.3)
[2019-02-09 09:39] LABS: Red Blood Cells-Urine 0-5 SEEN /hpf (0-5); Squamous Epithelial Cells - UA 0-5 SEEN /hpf (5-10)
== END ==
PROVIDERS: Family Provider Family Medicine; PCP Family Medicine; Referring Provider Nurse Practitioner Adult Health; Visit Provider Nurse Practitioner Adult Health
DX: Z00.00 Encounter for general adult medical examination without abnormal findings (principal); E78.5 Hyperlipidemia, unspecified; I48.91 Unspecified atrial fibrillation; E11.9 Type 2 diabetes mellitus without complications; I10 Essential (primary) hypertension
CPT/HCPCS: 36415; 80053; 80061; 81001; 83036; 85025; 88108; 88305; 88313

== ENCOUNTER → 2019-04-03 15:47 | Outpatient (CLI) | payer BC, SELFPAY ==
[2018-06-13 16:13] VITALS: BMI 35.7
--- NOTE | 2019-04-03 15:50 | BI_ITS ---
MAMMOGRAPHY - BILATERAL SCREENING REASON FOR EXAM: Female, 59 years old. Routine annual screening examination. PERTINENT HISTORY: Non-contributory. TECHNIQUE: Digital bilateral breast christine (3D mammographic acquisition) in the CC and MLO projections. 2-D mediolateral oblique (MLO) and craniocaudad (CC) views of both breasts were obtained. CAD: Full Field Digital Mammography with Computer Added Detection was performed. COMPARISON: Comparison is made with prior study dated April 02, 2018 and February 24, 2017. FINDINGS: Breast Composition: The breasts are almost entirely fatty. There are no dominant masses or suspicious calcifications. Stable benign-appearing bilateral axillary lymph nodes. No other significant abnormalities are identified. There has been no significant change since the prior study. BI/SCREEN MAMM (CAD) W/CHRISTINE BILAT IMPRESSION: Stable bilateral screening mammogram. Yearly follow-up mammogram recommended. (A) ASSESSMENT CATEGORY: BIRADS Category 2: Benign. A letter regarding these results will be sent to the patient by the facility within 30 days. Approximately 10% of breast cancers are not detected by mammography. A normal mammogram should not delay biopsy of a clinically suspicious abnormality. [id number] Electronically Signed: Adin Posadas, at 9:31 EST , Service support ,
== END ==
PROVIDERS: Family Provider Family Medicine; PCP Family Medicine; Referring Provider Family Medicine; Visit Provider Family Medicine
DX: Z12.31 Encounter for screening mammogram for malignant neoplasm of breast (principal)
CPT/HCPCS: 77063; 77067

== ENCOUNTER → 2019-06-12 13:36 | Outpatient (CLI) | payer BC, SELFPAY ==
[2018-06-13 16:13] VITALS: BMI 35.7
--- NOTE | 2019-06-12 13:38 | CT_ITS ---
STUDY: CT CHEST WITH CONTRAST REASON FOR EXAM: Female, 59 years old. Carcinoid tumor, LLL LOBECTOMY RADIATION DOSAGE (If Supplied By Facility): CTDIvol = ( 14.56 ) mGy, DLP = ( 761.37 ) mGycm TECHNIQUE: Transaxial imaging was performed following intravenous administration of 100 cc of Isovue-300. Multiplanar coronal and sagittal images were reformatted. Individualized dose optimization techniques were used for this CT. COMPARISON: Comparison is made with prior examination dated June 11, 2018. FINDINGS: Small apical dense nodules in the left lobe of the thyroid. There is a 2.4 cm hypodense nodule in the inferior portion of the left lobe of the thyroid. The patient is status post left lower lobectomy with stable postsurgical changes. Mild degree of emphysematous changes more prominent in the upper lobes. Stable 6 mm noncalcified nodule in the posterior aspect of the right upper lobe as seen on axial image #32. Normal heart and pericardium. Normal mediastinum. Normal hilar regions. Normal enhanced pulmonary arteries. Normal aorta arch and descending thoracic aorta. There are mild degenerative changes of the thoracic spine. Mild hyperplasia of the left adrenal gland. This is unchanged. CT/Chest WITH Contrast IMPRESSION: Stable examination. Electronically Signed: Adin Posadas, at 15:13 EDT , Service support ,
--- NOTE | 2019-06-12 13:38 | CT_ITS ---
STUDY: CT SOFT TISSUE NECK WITH CONTRAST REASON FOR EXAM: Female, 59 years old. Carcinoid tumor, LLL LOBECTOMY RADIATION DOSAGE (If Supplied By Facility): CTDIvol = ( 14.56 ) mGy, DLP = ( 761.37 ) mGycm TECHNIQUE: The patient was scanned in a multi-detector CT scanner. High resolution transaxial imaging was performed following intravenous administration of IV ISOVUE 300 100CC. Sagittal and coronal images were reconstructed. Individualized dose optimization techniques were used for this CT. COMPARISON: None. FINDINGS: Normal bilateral parotid glands. Normal bilateral control specialist spaces. Normal bilateral parapharyngeal spaces. Normal bilateral carotid spaces. Normal bilateral sublingual and submandibular glands and spaces. Normal visualized nasopharynx. Normal retropharyngeal space. Normal perivertebral space. Normal visualized bilateral faucial tonsils. The visualized tongue, tongue base and oropharynx are normal. The visualized cervical lymph nodes (levels I-) are within normal size limits, and maintain normal morphology. There is no demonstrated solid or cystic mass lesion. There is no abnormal contrast enhancement. Normal epiglottis, bilateral vallecula and hypopharynx. The pre-epiglottic and paraglottic adipose spaces are normal. Normal visualized bilateral piriform sinuses, aryepiglottic folds, vocal cords, and arytenoid-cricoid articulations. Normal subglottic trachea. Enlargement of the thyroid gland. There is a 1.7 cm x 1.5 cm solid hypoechoic nodule in the inferior aspect of the left lobe. This also evidence of 2 hypodense nodules in the right lobe. The larger measures 1.2 cm x 0.7 cm. Normal visualized pulmonary apices. Normal visualized paranasal sinuses. There is degenerative changes of the cervical spine. CT/Soft Tissue Neck WITH Contrast IMPRESSION: Enlargement of both lobes of thyroid gland with nodules in both lobes. Electronically Signed: Adin Posadas, at 15:07 EDT , Service support ,
[2019-06-12 13:55] LABS: CREATININE FINGERSTICK < 0.6 mg/dL (0.55-1.02); EGFR FINGERSTICK > 60.0000 mL/min (>60)
== END ==
PROVIDERS: PCP Family Medicine; Referring Provider Internal Medicine Medical Oncology; Visit Provider Internal Medicine Medical Oncology
DX: D3A.090 Benign carcinoid tumor of the bronchus and lung (principal); E04.2 Nontoxic multinodular goiter
CPT/HCPCS: 70491; 71260; Q9967

== ENCOUNTER → 2019-08-10 09:19 | Outpatient (CLI) | payer BC, SELFPAY ==
[2018-06-13 16:13] VITALS: BMI 35.7
[2019-08-10 10:18] LABS: Hemoglobin A1c 6.4 % (3.8-5.6)
[2019-08-10 10:21] LABS: ALB/GLOB Ratio 0.8 RATIO (0.9-2.4); AST(SGOT) 14 U/L (15-37); Alanine Aminotransfer ALT/SGPT 20 U/L (13-56); Albumin, Serum 3.1 g/dL (3.2-5.0); Alkaline Phosphatase 92 U/L (45-117); Anion Gap 4 (5-15); BUN 17 mg/dL (7-18); BUN/Creat Ratio 24.1 RATIO (10-20); Calcium,Total 8.7 mg/dL (8.5-10.1); Chloride 106 mmol/L (98-107); Cholesterol 149 mg/dL (200); Creatinine, Serum 0.71 mg/dL (0.55-1.02); EST Glomerular Filtration Rate 90 mL/min (>60); Est Glom Filt Rate - Afr Amer 109 mL/min (>60); Globulin 4.1 g/dL (2.2-4.2); Glucose 110 mg/dL (74-106); High Density Lipoprotein 52 mg/dL; Potassium 4.4 mmol/L (3.5-5.1); Protein, Total 7.2 g/dL (6.4-8.2); Sodium Level 141 mmol/L (136-145); Thyroid Stim Hormone (TSH) 1.37 uIU/mL (0.358-3.74); Triglycerides 81 mg/dL; Very Low Density Lipoprotein 16 mg/dL (5-40)
== END ==
PROVIDERS: PCP Family Medicine; Referring Provider Family Medicine; Visit Provider Family Medicine
DX: I10 Essential (primary) hypertension (principal); E04.1 Nontoxic single thyroid nodule; E78.00 Pure hypercholesterolemia, unspecified; E11.9 Type 2 diabetes mellitus without complications
CPT/HCPCS: 36415; 80053; 80061; 83036; 84443

== ENCOUNTER → 2019-12-16 16:45 | Outpatient (CLI) | payer BC, SELFPAY ==
[2019-08-15 15:48] VITALS: BMI 34.2
[2019-11-14 15:21] VITALS: BMI 34.2
--- NOTE | 2019-12-16 16:46 | US_ITS ---
STUDY: THYROID ULTRASOUND REASON FOR EXAM: Female, 59 years old. MULTINODULAR GOITER SEEN ON PREVIOUS CT TECHNIQUE: Ultrasound evaluation of the thyroid was performed with real-time and static chu-scale imaging. COMPARISON: Comparison is made with prior CT scan of the chest dated 12/16/2019. FINDINGS: RIGHT LOBE: The right lobe of the thyroid gland is enlarged and measures 5.3 cm x 2.3 cm x 2.0 cm. There is a heterogeneous echotexture. There are 5 complex solid cystic nodules in the right lobe of the thyroid. The largest is in the midpole and measures 1.87 x 1.3 c internal nodular areas seen m x 1.1 cm. Internal nodular vascularity is seen. LEFT LOBE: The left lobe of the thyroid gland measures 5.1 cm x 2 cm x 2 cm. There is a heterogeneous echotexture. A dominant predominantly solid nodule with cystic spaces is seen in the inferior aspect of the left lobe measuring 2.6 cm x 1.8 cm x 2.2 cm. 2 other subcentimeter cystic nodules are seen. ISTHMUS: The isthmus measures 2.0 mm. The regional lymph nodes are normal. US/Thyroid IMPRESSION: Dominant complex nodule in the inferior aspect of the left lobe of the thyroid gland as described. Biopsy is recommended. Multiple solid/cystic nodules are seen in both lobes as well. Electronically Signed: Adin Posadas, at 13:33 EDT , Service support ,
--- NOTE | 2019-12-16 16:48 | CT_ITS ---
STUDY: CT CHEST WITHOUT CONTRAST REASON FOR EXAM: Female, 59 years old. LUNG NODULE, HAD RESPIRATORY INFECTION BEGINNING OF MAY, PREV SMOKER 40 YRS X 1 PPD, HAD PARTIAL LT LUNG LOBECTOMY FOR BENIGN LESION, HX-DB RADIATION DOSAGE (If Supplied By Facility): CTDIvol = ( 13.96 ) mGy, DLP = ( 509.26 ) mGycm TECHNIQUE: Transaxial imaging was performed without the administration of intravenous contrast material. Multiplanar coronal and sagittal images were reformatted. Individualized dose optimization techniques were used for this CT. COMPARISON: Comparison is made with prior study dated 06/12/2019. FINDINGS: There is a 1 cm hypodense nodule in the midportion of the right lobe of the thyroid. Inhomogeneous enlargement of both lobes. I also suspect a 1.2 cm hypodense nodule in the inferior aspect of the left lobe. This is unchanged. Small bilateral benign-appearing axillary lymph nodes. Hyperinflation more prominent in the upper lobes. The patient is status post left lower lobectomy. Postsurgical changes are seen. Stable faint 6 mm noncalcified nodule in the posterior aspect of the right upper lobe as seen on axial image #23. There is no demonstrated pleural abnormality. There are calcifications of the coronary arteries. There are multiple small lymph nodes within the mediastinum, which are normal in size and morphology most compatible with reactive lymph hyperplasia. Normal hilar regions. Normal unenhanced pulmonary arteries. Normal aorta arch and descending thoracic aorta. There are degenerative changes of the thoracic spine. There is no demonstrated abnormality of the visualized upper abdomen. CT/Chest without Contrast IMPRESSION: Stable examination. Electronically Signed: Adin Posadas, at 9:20 EDT , Service support ,
== END ==
PROVIDERS: PCP Family Medicine; Referring Provider Internal Medicine Endocrinology, Diabetes & Metabolism; Visit Provider Internal Medicine Endocrinology, Diabetes & Metabolism
DX: E04.2 Nontoxic multinodular goiter (principal); R91.1 Solitary pulmonary nodule
CPT/HCPCS: 71250; 76536

== ENCOUNTER → 2019-12-31 10:52 | Outpatient (CLI) | payer BC, SELFPAY ==
--- NOTE | 2019-12-31 09:30 | ASPS_PTH ---
PATIENT: LIZZY RITTER LOC: [facility] U#:[id number] AGE/SX: 65/F ROOM: RE12/31/[address]: Dr. Jose Eduardo Crespo MD : 1960 BED: DIS: SPEC #: [id number] RECD: 12/31/19 10:46 STATUS: MUNA FAINA #: [id number] HARJIT: 12/31/19 09:[address]: Jose Eduardo Crespo DEPT: CYTOLOGY RECD BY: Henny Kaufman ENTERED: 12/31/19 12:19 SP TYPE: ASPIRATION OTHR DR: Dr. Billy Bhatti MD Tissues: A - Thyroid gland, NOS B - Thyroid gland, NOS Procedures: Special Stain Group II Cytology Other HEADER OPERATION: Ultrasound-guided fine needle aspiration bilateral thyroid PRE-OP DIAGNOSIS: Multinodular goiter TISSUE SUBMITTED: A - FNA left thyroid slides x12, B - FNA right thyroid slides x12 DIAGNOSIS CYTOLOGY A. Left thyroid nodule, ultrasound-guided FNA (smears): Consistent with benign follicular/colloid nodule with cystic changes. Adequate for evaluation. See comment. B. Right thyroid nodule, ultrasound-guided FNA (smears): Consistent with benign follicular/colloid nodule with cystic changes. Adequate for evaluation. See comment. CORINNE:stephanie 01/01/20 COMMENT A & B. Correlation with clinical, radiologic findings and appropriate follow up are necessary. CYTOLOGY STUDY Slides are reviewed. CYTOLOGY GROSS A - Received are 12 smears labeled with the patient's name and designated per the requisition as left thyroid. Submitted for staining. B - Received are 12 smears labeled with the patient's name and designated per the requisition as right thyroid. Submitted for staining. / stephanie 12/31/19 TC:5 CPT: 36711 x2
== END ==
PROVIDERS: PCP Family Medicine; Referring Provider Surgery; Visit Provider Surgery
DX: E04.2 Nontoxic multinodular goiter (principal)
CPT/HCPCS: 88161; 88313

== ENCOUNTER → 2020-02-14 07:28 | Outpatient (CLI) | payer BC, SELFPAY ==
[2020-02-14 09:03] LABS: Absolute Lymphocyte Count 2.69 X10^3/uL (0.83-4.51); Absolute Neutrophil Count 4.9 X10^3/uL (2.0-7.7); Basophil# 0.06 X10^3/uL; Basophil% 0.7 % (0-1); Eosinophil# 0.31 X10^3/uL; Eosinophils% 3.6 % (0-5); Hematocrit 43.5 % (37-47); Lymphocyte # 2.69 X10^3/ul (4.0); Mean Corp Hgb Conc 32.2 g/dL (32-36); Mean Corpuscular Hgb 29.6 pg (27.0-32.0); Mean Platelet Vol. 9.7 fl (6.2-12.0); Monocyte# 0.68 X10^3/uL; Monocyte% 7.8 % (0-10); NRBC Flagged by Analyzer 0 % (0-5); Neutrophil # 4.91 X10^3/uL (2.7-7.7); Neutrophil % 56.4 % (47-70); Platelet Count 294 K/mm3 (150-450); RBC Distribution Width CV 15.2 % (11.6-14.6); RBC Distribution Width SD 51.1 fl (35.1-43.9); Red Blood Count 4.73 M/mm3 (4.2-5.4); White Blood Count 8.7 K/mm3 (4.4-11.0)
[2020-02-14 09:20] LABS: Cholesterol 150 mg/dL (200); High Density Lipoprotein 51 mg/dL; Triglycerides 96 mg/dL; Very Low Density Lipoprotein 19 mg/dL (5-40)
[2020-02-14 09:26] LABS: Hemoglobin A1c 6.3 % (3.8-5.6)
[2020-02-14 13:48] LABS: Color, Urine Yellow (Yellow); Glucose, Dipstick Normal (Normal); Ketone-Dipstick Negative (Negative); Leukocyte Esterase-Dipstick Negative /ul (Negative); Nitrite-Dipstick Negative (Negative); Occult Blood-Urine 10 /ul (Negative); Protein-Dipstick Negative (Negative); Urine Bilirubin Dipstick Negative (Negative); Urine Clarity Clear (Clear); Urine Urobilinogen Normal (Normal)
== END ==
PROVIDERS: PCP Family Medicine; Referring Provider Family Medicine; Visit Provider Family Medicine
DX: I48.91 Unspecified atrial fibrillation (principal); E78.00 Pure hypercholesterolemia, unspecified; E11.9 Type 2 diabetes mellitus without complications; I10 Essential (primary) hypertension
CPT/HCPCS: 36415; 80061; 81002; 83036; 85025

== ENCOUNTER → 2020-02-27 16:36 | Outpatient (CLI) | payer BC, SELFPAY ==
[2020-02-27 17:46] LABS: Mucous, Urine 0 SEEN /hpf (<or=2+); Red Blood Cells-Urine 0 SEEN /hpf (0-5)
[2020-02-27 18:06] LABS: Color, Urine Yellow (Yellow); Glucose, Dipstick Normal (Normal); Ketone-Dipstick Negative (Negative); Leukocyte Esterase-Dipstick Negative /ul (Negative); Nitrite-Dipstick Negative (Negative); Occult Blood-Urine 150 /ul (Negative); Protein-Dipstick Negative (Negative); Urine Bilirubin Dipstick Negative (Negative); Urine Clarity Clear (Clear); Urine Urobilinogen Normal (Normal)
[2020-02-27 18:39] LABS: Bacteria 4+ /hpf (None Seen); Squamous Epithelial Cells - UA 0-5 SEEN /hpf (5-10); White Blood Cells 0-5 SEEN /hpf (0-5)
== END ==
PROVIDERS: PCP Family Medicine; Referring Provider Nurse Practitioner Adult Health; Visit Provider Nurse Practitioner Adult Health
DX: R31.29 Other microscopic hematuria (principal)
CPT/HCPCS: 81001

== ENCOUNTER → 2020-04-09 15:55 | Outpatient (CLI) | payer OTHER, SELFPAY ==
[2019-12-26 13:33] VITALS: BMI 34.2
--- NOTE | 2020-04-09 15:57 | BI_ITS ---
MAMMOGRAPHY - BILATERAL SCREENING REASON FOR EXAM: Female, 60 years old. Routine annual screening examination. PERTINENT HISTORY: Non-contributory. TECHNIQUE: Digital bilateral breast christine (3D mammographic acquisition) in the CC and MLO projections. 2-D mediolateral oblique (MLO) and craniocaudad (CC) views of both breasts were obtained. CAD: Full Field Digital Mammography with Computer Added Detection was performed. COMPARISON: Comparison is made with prior examination dated 04/03/2019 and 04/02/2018. FINDINGS: Breast Composition: The breasts are almost entirely fatty. There are no dominant masses or suspicious calcifications. Stable benign-appearing bilateral axillary lymph nodes. No other significant abnormalities are identified. There has been no significant change since the prior study. BI/SCRN MAMM (CAD)W/CHRISTINE BILAT IMPRESSION: Stable bilateral screening mammogram. Yearly follow-up mammogram recommended. (A) ASSESSMENT CATEGORY: BIRADS Category 2: Benign. A letter regarding these results will be sent to the patient by the facility within 30 days. Approximately 10% of breast cancers are not detected by mammography. A normal mammogram should not delay biopsy of a clinically suspicious abnormality. [id number] Electronically Signed: Adin Posadas MD at 8:23 EST , Service support ,
== END ==
PROVIDERS: PCP Family Medicine; Referring Provider Family Medicine; Visit Provider Family Medicine
DX: Z12.31 Encounter for screening mammogram for malignant neoplasm of breast (principal)
CPT/HCPCS: 77063; 77067

== ENCOUNTER → 2020-06-15 17:34 | Outpatient (CLI) | payer OTHER, SELFPAY ==
[2019-12-26 13:33] VITALS: BMI 34.2
--- NOTE | 2020-06-15 17:37 | CT_ITS ---
STUDY: CT CHEST WITH CONTRAST REASON FOR EXAM: Female, 60 years old. CARCINOID TUMOR LEFT LUNG RADIATION DOSAGE (If Supplied By Facility): CTDIvol = ( 12.71 ) mGy, DLP = ( 556.92 ) mGycm TECHNIQUE: Transaxial imaging was performed following intravenous administration of IV 100mL Isovue-370. Individualized dose optimization techniques were used for this CT. COMPARISON: Comparison is made with prior study dated 12/16/2019. FINDINGS: Small benign-appearing bilateral axillary lymph nodes. Stable 1 seminal hypodense nodule in the inferior pole of the right lobe of the thyroid with focal calcification. Stable 1.5 cm hypodense nodule in the inferior pole of the left lobe of the thyroid. Mild degree of emphysematous changes worse in the upper lobes. The patient is status post left lower lobectomy with postsurgical changes seen. Stable faintly seen 6 mm noncalcified nodule in the posterior aspect of the right upper lobe. This is seen on axial image #18. There is no demonstrated pleural abnormality. There are calcifications of the coronary arteries. Normal mediastinum. Normal hilar regions. Normal enhanced pulmonary arteries. There is atherosclerotic calcification of the aortic arch with tortuosity and elongation of the aortic arch and descending thoracic aorta. There are degenerative changes of the thoracic spine. There is no demonstrated abnormality of the visualized upper abdomen. CT/Chest WITH Contrast IMPRESSION: Stable examination. Electronically Signed: Adin Posadas MD at 18:48 EDT , Service support ,
[2020-06-15 17:51] LABS: CREATININE FINGERSTICK 1.3 mg/dL (0.55-1.02)
== END ==
PROVIDERS: PCP Family Medicine; Referring Provider Internal Medicine Medical Oncology; Visit Provider Internal Medicine Medical Oncology
DX: D3A.090 Benign carcinoid tumor of the bronchus and lung (principal)
CPT/HCPCS: 71260; Q9967

== ENCOUNTER → 2020-08-09 08:11 | Outpatient (CLI) | payer OTHER, SELFPAY ==
[2020-08-09 08:46] LABS: ALB/GLOB Ratio 0.8 RATIO (0.9-2.4); AST(SGOT) 10 U/L (15-37); Alanine Aminotransfer ALT/SGPT 17 U/L (13-56); Albumin, Serum 3.1 g/dL (3.2-5.0); Alkaline Phosphatase 91 U/L (45-117); Anion Gap 1 (5-15); BUN 16 mg/dL (7-18); BUN/Creat Ratio 22.2 RATIO (10-20); Calcium,Total 8.9 mg/dL (8.5-10.1); Chloride 106 mmol/L (98-107); Cholesterol 145 mg/dL (200); Creatinine, Serum 0.72 mg/dL (0.55-1.02); EST Glomerular Filtration Rate 88 mL/min (>60); Est Glom Filt Rate - Afr Amer 106 mL/min (>60); Globulin 4.1 g/dL (2.2-4.2); Glucose 129 mg/dL (74-106); High Density Lipoprotein 54 mg/dL; Potassium 4.2 mmol/L (3.5-5.1); Protein, Total 7.2 g/dL (6.4-8.2); Sodium Level 139 mmol/L (136-145); Triglycerides 94 mg/dL; Very Low Density Lipoprotein 19 mg/dL (5-40)
[2020-08-09 08:49] LABS: Hemoglobin A1c 6.5 % (3.8-5.6)
== END ==
PROVIDERS: PCP Family Medicine; Visit Provider Family Medicine
DX: I48.91 Unspecified atrial fibrillation (principal); E78.00 Pure hypercholesterolemia, unspecified; E11.9 Type 2 diabetes mellitus without complications; I10 Essential (primary) hypertension
CPT/HCPCS: 36415; 80053; 80061; 83036

== ENCOUNTER → 2021-02-06 08:06 | Outpatient (CLI) | payer OTHER, SELFPAY ==
[2021-02-06 09:12] LABS: Erythrocyte Sedimentation Rate 35 mm/hr (0-30)
[2021-02-06 09:13] LABS: Absolute Lymphocyte Count 2.67 X10^3/uL (0.83-4.51); Absolute Neutrophil Count 5.9 X10^3/uL (2.0-7.7); Basophil# 0.08 X10^3/uL; Basophil% 0.8 % (0-1); Eosinophil# 0.31 X10^3/uL; Eosinophils% 3.2 % (0-5); Hematocrit 41.4 % (37-47); Hemoglobin 13.5 g/dL (12.0-15.0); Lymphocyte # 2.67 X10^3/ul (0.83-4.51); Lymphocyte % 27.8 % (19-41); Mean Corp Hgb Conc 32.6 g/dL (32-36); Mean Corpuscular Hgb 29.7 pg (27.0-32.0); Mean Platelet Vol. 9.5 fl (6.2-12.0); Monocyte# 0.61 X10^3/uL; Monocyte% 6.3 % (0-10); NRBC Flagged by Analyzer 0 % (0-5); Neutrophil # 5.91 X10^3/uL (2.7-7.7); Neutrophil % 61.5 % (47-70); Platelet Count 303 K/mm3 (150-450); RBC Distribution Width CV 14.8 % (11.6-14.6); RBC Distribution Width SD 49.6 fl (35.1-43.9); Red Blood Count 4.55 M/mm3 (4.2-5.4); White Blood Count 9.6 K/mm3 (4.4-11.0)
[2021-02-06 09:19] LABS: ALB/GLOB Ratio 0.8 RATIO (0.9-2.4); AST(SGOT) 12 U/L (15-37); Alanine Aminotransfer ALT/SGPT 19 U/L (13-56); Albumin, Serum 3.1 g/dL (3.2-5.0); Alkaline Phosphatase 92 U/L (45-117); Anion Gap 3 (5-15); BUN 22 mg/dL (7-18); BUN/Creat Ratio 33.4 RATIO (10-20); Chloride 110 mmol/L (98-107); Cholesterol 152 mg/dL (200); Creatinine, Serum 0.66 mg/dL (0.55-1.02); EST Glomerular Filtration Rate 97 mL/min (>60); Est Glom Filt Rate - Afr Amer 118 mL/min (>60); Globulin 4.1 g/dL (2.2-4.2); Glucose 112 mg/dL (74-106); High Density Lipoprotein 46 mg/dL; Potassium 4.4 mmol/L (3.5-5.1); Protein, Total 7.2 g/dL (6.4-8.2); Sodium Level 142 mmol/L (136-145); Triglycerides 65 mg/dL; Very Low Density Lipoprotein 13 mg/dL (5-40)
[2021-02-06 09:23] LABS: Hemoglobin A1c 6.6 % (3.8-5.6)
== END ==
PROVIDERS: PCP Family Medicine; Visit Provider Family Medicine
DX: R51.9 Headache, unspecified (principal); E78.5 Hyperlipidemia, unspecified; E11.9 Type 2 diabetes mellitus without complications; I10 Essential (primary) hypertension
CPT/HCPCS: 36415; 80053; 80061; 83036; 85025; 85652

== ENCOUNTER 2021-04-13 15:42 | Outpatient (CLI) | payer BC, SELFPAY ==
--- NOTE | 2021-04-13 15:47 | BI_ITS ---
MAMMOGRAPHY - BILATERAL SCREENING REASON FOR EXAM: Female, 61 years old. Routine annual screening examination. PERTINENT HISTORY: Non-contributory. TECHNIQUE: Digital bilateral breast christine (3D mammographic acquisition) in the CC and MLO projections. 2-D mediolateral oblique (MLO) and craniocaudad (CC) views of both breasts were obtained. CAD: Full Field Digital Mammography with Computer Added Detection was performed. COMPARISON: Comparison is made with prior study dated 10/07/2020 and 04/03/2019. FINDINGS: Breast Composition: The breasts are almost entirely fatty. There are no dominant masses or suspicious calcifications. Stable benign-appearing bilateral axillary lymph nodes. No other significant abnormalities are identified. There has been no significant change since the prior study. BI/SCRN MAMM (CAD)W/CHRISTINE BILAT IMPRESSION: Stable bilateral screening mammogram. Yearly follow-up mammogram recommended. (A) ASSESSMENT CATEGORY: BIRADS Category 2: Benign. A letter regarding these results will be sent to the patient by the facility within 30 days. Approximately 10% of breast cancers are not detected by mammography. A normal mammogram should not delay biopsy of a clinically suspicious abnormality. [id number] Electronically Signed: Adin Posadas MD at 9:08 EST ,
== END 2021-04-13 23:59 | disposition short-term general hospital (02) ==
LOC: OPBI 15:45
PROVIDERS: PCP Family Medicine; Referring Provider Family Medicine; Visit Provider Family Medicine
DX: Z12.31 Encounter for screening mammogram for malignant neoplasm of breast (principal)
CPT/HCPCS: 77063; 77067

== ENCOUNTER 2021-06-17 15:51 | Outpatient (CLI) | payer BC, SELFPAY ==
--- NOTE | 2021-06-17 16:25 | CT_ITS ---
EXAM: CT chest with IV contrast. HISTORY:MONITOR-LUNG CA. Reportedly history of carcinoid tumor of the left lung mentioned on prior history June 15, 2020 TECHNIQUE: CT Chest W/ Contrast Injection. 2.5 mm axials, 1.2 mm coronal and sagittal reconstructions. COMPARISON: Multiple chest CTs back to June 12, 2017. LIMITATIONS: None. LUNGS: Mild edematous changes in the upper lung rodriguez, subtle. Postoperative change at the medial left upper lobe adjacent to the mediastinum. And in the left hilar region and adjacent to the posterior mediastinum. Apparent left lower lobectomy. Faintly dense roughly 6.4 mm x 5 mm 6 mm groundglass nodule in posterior right upper lobe appears stable back to June 12, 2017. No new nodules. PULMONARY VESSELS: Normal. PLEURA: Normal MEDIASTINUM: Small hiatal hernia. UPPER ABDOMEN: There is a subtle hyperdense lesion in the spleen measuring roughly 1.1 cm, retrospectively present on prior exam, faintly enhancing nodule. The gallbladder and pancreas are not fully included. No suspicious adrenal nodules. BONES/SOFT TISSUES: There is similar appearance of hypodense lesion in the left thyroid lobe, not obviously simple cyst, 2.5 cm x 1.5 cm x 2.1 cm, roughly 2 cm x 1.5 cm x 2.3 cm on my measurement in 2018.. Small hypodensities of the right thyroid lobe are not fully included, similar punctate calcification at the posterior right thyroid lobe, possibly within exophytic nodule of roughly 2 cm, similar size and configuration. Partial fusion of left lateral fifth and sixth ribs and old posterior healed rib fracture are stable. Small axillary nodes. OTHER: None. CT/Chest WITH Contrast IMPRESSION: Stable exam. Subcentimeter groundglass density right posterior upper lobe nodule. COPD. Postoperative change of the left chest. Heterogeneous thyroid nodules or complex cysts. Small enhancing or hyperdense splenic lesion also retrospectively seen back to 2018. Electronically Signed: Maryjo Garcia MD at 21:32 EDT ,
[2021-06-17 16:31] LABS: CREATININE FINGERSTICK 0.7 mg/dL (0.55-1.02); EGFR FINGERSTICK > 60.0000 mL/min (>60)
== END 2021-06-17 23:59 | disposition home or self-care (01) ==
LOC: CT 15:54
PROVIDERS: PCP Family Medicine; Referring Provider Internal Medicine Medical Oncology; Visit Provider Internal Medicine Medical Oncology
DX: E11.9 Type 2 diabetes mellitus without complications (principal); J44.9 Chronic obstructive pulmonary disease, unspecified; R91.1 Solitary pulmonary nodule; E04.1 Nontoxic single thyroid nodule
CPT/HCPCS: 71260; Q9967

== ENCOUNTER 2021-06-18 16:32 | Outpatient (CLI) | payer BC, SELFPAY ==
[2021-06-18 17:06] LABS: Absolute Lymphocyte Count 3.73 X10^3/uL (0.83-4.51); Absolute Neutrophil Count 7.8 X10^3/uL (2.0-7.7); Basophil# 0.06 X10^3/uL; Basophil% 0.5 % (0-1); Eosinophil# 0.29 X10^3/uL; Eosinophils% 2.2 % (0-5); Hematocrit 41.8 % (37-47); Hemoglobin 14.1 g/dL (12.0-15.0); Lymphocyte # 3.73 X10^3/ul (0.83-4.51); Lymphocyte % 28.8 % (19-41); Mean Corp Hgb Conc 33.7 g/dL (32-36); Mean Corpuscular Hgb 30.5 pg (27.0-32.0); Mean Corpuscular Volume 90.3 fL (81-99); Mean Platelet Vol. 9.5 fl (6.2-12.0); Monocyte# 0.99 X10^3/uL; Monocyte% 7.7 % (0-10); NRBC Flagged by Analyzer 0 % (0-5); Neutrophil % 60.3 % (47-70); Platelet Count 307 K/mm3 (150-450); RBC Distribution Width CV 14.8 % (11.6-14.6); RBC Distribution Width SD 48.8 fl (35.1-43.9); Red Blood Count 4.63 M/mm3 (4.2-5.4); White Blood Count 12.9 K/mm3 (4.4-11.0)
[2021-06-18 17:51] LABS: Albumin, Serum 3.5 g/dL (3.2-5.0); BUN 21 mg/dL (7-18); BUN/Creat Ratio 26.4 RATIO (10-20); Creatinine, Serum 0.79 mg/dL (0.55-1.02); EST Glomerular Filtration Rate 78 mL/min (>60); Est Glom Filt Rate - Afr Amer 95 mL/min (>60); Glucose 121 mg/dL (74-106); Protein, Total 7.7 g/dL (6.4-8.2)
[2021-06-18 17:52] LABS: ALB/GLOB Ratio 0.8 RATIO (0.9-2.4); AST(SGOT) 14 U/L (15-37); Alanine Aminotransfer ALT/SGPT 22 U/L (13-56); Alkaline Phosphatase 101 U/L (45-117); Anion Gap 3 (5-15); Calcium,Total 9.6 mg/dL (8.5-10.1); Chloride 103 mmol/L (98-107); Globulin 4.2 g/dL (2.2-4.2); Potassium 4.6 mmol/L (3.5-5.1); Sodium Level 138 mmol/L (136-145)
== END 2021-06-18 23:59 | disposition home or self-care (01) ==
LOC: LAB 16:34
PROVIDERS: PCP Family Medicine; Visit Provider Internal Medicine Medical Oncology
DX: C34.32 Malignant neoplasm of lower lobe, left bronchus or lung (principal)
CPT/HCPCS: 36415; 80053; 85025

== ENCOUNTER → 2021-08-07 | Outpatient (CLI) | payer BC, SELFPAY ==
[2021-08-07 09:11] LABS: AST(SGOT) 12 U/L (15-37); Alanine Aminotransfer ALT/SGPT 18 U/L (13-56); Albumin, Serum 3.1 g/dL (3.2-5.0); Alkaline Phosphatase 90 U/L (45-117); Bilirubin, Direct 0.11 mg/dL (0.00-0.30); Cholesterol 141 mg/dL (200); Globulin 3.9 g/dL (2.2-4.2); High Density Lipoprotein 43 mg/dL; Triglycerides 137 mg/dL; Very Low Density Lipoprotein 27 mg/dL (5-40)
[2021-08-07 09:15] LABS: Hemoglobin A1c 6.7 % (3.8-5.6)
== END | disposition home or self-care (01) ==
LOC: LAB 08:19
PROVIDERS: PCP Family Medicine; Referring Provider Family Medicine; Visit Provider Family Medicine
DX: E78.5 Hyperlipidemia, unspecified (principal); E11.9 Type 2 diabetes mellitus without complications
CPT/HCPCS: 36415; 80061; 80076; 83036

== ENCOUNTER 2021-09-08 16:00 | Outpatient (RCR) | payer BC, SELFPAY ==
--- NOTE | 2021-09-08 16:30 | HP.PTREVAL ---
Dr. Jose Eduardo Cortez, DPM, It has been my pleasure to treat LIZZY RITTER over the last 2 visits for Achilles Tendonitis. Please see the progress note below for an update on the physical therapy plan of care! Subjective: Pt. reports being 95% better overall. Pt. reports having minimal pain, occasional increase in L achilles pain, but very minimally. Pt. reports being HEP compliant with stretching and eccentric exercises. She is having some medial anterior R ankle pain. She is to see physician about this tomorrow. Objective/Function: ROM: L ankle: DF 8 deg, PF 38deg, INV 17deg, EVR 14deg. Pt. had no pain with testing. No pain with over pressure in these ranges as well. MMT: 5/5 L ankle and knee. RLE: 5/5 throughout R LE, 4/5 hip ER/IR strength. GAIT: Pt. ambulates with good pattern on her LLE. She does have increased toeing out on R side seems to be from her hip in ER positioning. Palpation: Pt. has no tenderness to palpation of L achilles. Pt. does have increased pain with palpation between anterior tibial tendon and medial malleolus. Plan Plan: Pt. to follow up with physician tomorrow. She is progressing well with her L Achilles. She to have re check for this and follow up with her R ankle. If I do not hear from her in the new few weeks I will DC back to physician at that point in time. Balance/Gait/Functional tests - Balance/Special Test Scores Lower Extremity Functional Score: 78 Goals Goal 1:: Patient will be I with HEP and progression Goal Time Frame: 4-6 Weeks Goal Progress: Goal Met Goal 2:: Patient will report 80% improvement Goal Time Frame: 4-6 Weeks Goal Progress: Goal Met Goal 3:: Patient will SLS for 15 sec prior to LOB and no pain Goal Time Frame: 4-6 Weeks Goal Progress: Goal Met Anticipated Interventions Patient/Client Instruction: Educate patient on: Benefits of Fitness Program Therapeutic Exercise to Include: Strength training, Endurance training, Balance training, Coordination, Agility training, Body mechanics, Postural training, Flexibilty training, Gait and locomotor training, Neuromotor development, Dynamic Lumbar Stabilization, Scapular Strength/Stabilization For the Purpose of:: To improve muscle performance and motor function Manual Therapy Techniques to Include: Mobilization, Soft tissue mobilization For the Purpose of:: To improve nutrient delivery to tissue TENS: Yes Cryotherapy (ice pack, ice massage): Yes Thermo therapy (hot pack): Yes Ultrasound (thermal/non thermal): Yes Please do not hesitate to contact me at [phone] by phone or if you have questions or concerns regarding this new plan of care! Sincerely, ALEXANDRA NelsonT
--- NOTE | 2021-09-29 14:40 | HP.PTDCSUM ---
It has been my pleasure to treat LIZZY RITTER referred by Dr. Jose Eduardo Cortez DPM, with the diagnosis of Achilles Tendonitis for a total of 2 visit(s). Discharge Date: Please see the following information for a summary of their discharge status. Subjective: Pt. reports being 95% better overall. Pt. reports having minimal pain, occasional increase in L achilles pain, but very minimally. Pt. reports being HEP compliant with stretching and eccentric exercises. She is having some medial anterior R ankle pain. She is to see physician about this tomorrow. L Achilles Pain Intensity (Out of 10): 0 R anterior ankle pain Pain Intensity (Out of 10): 0 Objective/Function: ROM: L ankle: DF 8 deg, PF 38deg, INV 17deg, EVR 14deg. Pt. had no pain with testing. No pain with over pressure in these ranges as well. MMT: 5/5 L ankle and knee. RLE: 5/5 throughout R LE, 4/5 hip ER/IR strength. GAIT: Pt. ambulates with good pattern on her LLE. She does have increased toeing out on R side seems to be from her hip in ER positioning. Palpation: Pt. has no tenderness to palpation of L achilles. Pt. does have increased pain with palpation between anterior tibial tendon and medial malleolus. Goal 1:: Patient will be I with HEP and progression Goal Progress: Goal Met Goal 2:: Patient will report 80% improvement Goal Progress: Goal Met Goal 3:: Patient will SLS for 15 sec prior to LOB and no pain Goal Progress: Goal Met Plan: Pt. to follow up with physician tomorrow. She is progressing well with her L Achilles. She to have re check for this and follow up with her R ankle. If I do not hear from her in the new few weeks I will DC back to physician at that point in time. If there are questions or concerns regarding this patient's physical therapy, please feel free to call me at [phone]. Thank you for the referral of this patient. Sincerely, Bertha Rojas, ALEXANDRAT Balance/Gait/Functional tests - Balance/Special Test Scores Lower Extremity Functional Score: 78
== END 2021-09-08 19:00 | disposition home or self-care (01) ==
LOC: PT 16:00
PROVIDERS: PCP Family Medicine; Visit Provider Podiatrist
DX: M76.62 Achilles tendinitis, left leg (principal)
CPT/HCPCS: 97110; 97162; 97164

== ENCOUNTER → 2022-06-20 | Outpatient (CLI) | payer BC, SELFPAY ==
[2022-06-20 16:25] LABS: Absolute Lymphocyte Count 3.69 X10^3/uL (0.83-4.51); Absolute Neutrophil Count 7.5 X10^3/uL (2.0-7.7); Basophil# 0.06 X10^3/uL; Basophil% 0.5 % (0-1); Eosinophil# 0.26 X10^3/uL; Eosinophils% 2.1 % (0-5); Hematocrit 41.4 % (37-47); Hemoglobin 13.7 g/dL (12.0-15.0); Lymphocyte # 3.69 X10^3/ul (0.83-4.51); Lymphocyte % 29.5 % (19-41); Mean Corp Hgb Conc 33.1 g/dL (32-36); Mean Corpuscular Volume 90.6 fL (81-99); Mean Platelet Vol. 8.8 fl (6.2-12.0); Monocyte# 0.95 X10^3/uL; Monocyte% 7.6 % (0-10); NRBC Flagged by Analyzer 0 % (0-5); Platelet Count 300 K/mm3 (150-450); RBC Distribution Width CV 15.1 % (11.6-14.6); RBC Distribution Width SD 49.9 fl (35.1-43.9); Red Blood Count 4.57 M/mm3 (4.2-5.4); White Blood Count 12.5 K/mm3 (4.4-11.0)
--- NOTE | 2022-06-20 16:32 | CT_ITS ---
STUDY: CT CHEST T ABDOMEN WITH CONTRAST REASON FOR EXAM: Female, 62 years old. CARCINOID TUMOR L LUNG RADIATION DOSAGE (If Supplied By Facility): CTDIvol = ( 15.83 ) mGy, DLP = ( 1291.43 ) mGycm TECHNIQUE: Transaxial imaging was performed following intravenous administration of IV 100mL [id number]. Multiplanar coronal and sagittal images were reformatted. Individualized dose optimization techniques were used for this CT. COMPARISON: Comparison is made with prior study dated June 17, 2021. FINDINGS: CHEST 2.2 cm x 1.6 cm hypodense nodule in the upper pole of the left lobe of the thyroid. Small hypodense nodules in the inferior aspect of the right lobe of the thyroid. These are unchanged. Stable 6 mm x 5 mm focal parenchymal last appearance nodule in the posterior right upper lobe. This is unchanged. Mild degree of emphysematous changes. There is no demonstrated pleural abnormality. Normal heart and pericardium. Normal mediastinum. Normal hilar regions. Normal unenhanced pulmonary arteries. Normal aorta arch and descending thoracic aorta. There are multi-level degenerative changes of the thoracic spine. ABDOMEN Fatty infiltration of the liver. Normal gallbladder and extrahepatic biliary system. Stable 8 mm enhancing nodule in the superior region of the splenic hilum. Normal pancreas. Mildly enlarged left adrenal gland suggestive of hyperplasia. Normal right kidney. Normal left kidney. Normal visualized stomach. Normal small intestine. Normal colon. The appendix is visualized and appears normal. There is scattered atherosclerotic calcification of the abdominal aorta, without a demonstrated aneurysm. Normal inferior vena cava. There is borderline retroperitoneal lymphadenopathy with enlarged nodes no greater than 10mm in the short axis diameter. Normal abdominal wall. There are degenerative changes of the visualized lumbar spine. CT/CT Chest AND Abd W/ Contrast IMPRESSION: Stable examination. Electronically Signed: Adin Posadas MD at 14:28 EDT ,
[2022-06-20 16:46] LABS: ALB/GLOB Ratio 0.7 RATIO (0.9-2.4); AST(SGOT) 13 U/L (15-37); Alanine Aminotransfer ALT/SGPT 19 U/L (13-56); Albumin, Serum 3.2 g/dL (3.2-5.0); Alkaline Phosphatase 96 U/L (45-117); Anion Gap 3 (5-15); BUN 19 mg/dL (7-18); BUN/Creat Ratio 25.4 RATIO (10-20); Calcium,Total 9.2 mg/dL (8.5-10.1); Chloride 105 mmol/L (98-107); Creatinine, Serum 0.75 mg/dL (0.55-1.02); EST Glomerular Filtration Rate 84 mL/min (>60); Est Glom Filt Rate - Afr Amer 101 mL/min (>60); Globulin 4.4 g/dL (2.2-4.2); Glucose 125 mg/dL (74-106); LDH 184 U/L (84-246); Potassium 4.4 mmol/L (3.5-5.1); Protein, Total 7.6 g/dL (6.4-8.2); Sodium Level 138 mmol/L (136-145)
[2022-06-20 17:05] LABS: CREATININE FINGERSTICK < 0.9 mg/dL (0.55-1.02); EGFR FINGERSTICK > 60.0000 mL/min (>60)
== END | disposition home or self-care (01) ==
LOC: CT 16:11
PROVIDERS: PCP Family Medicine; Visit Provider Internal Medicine Medical Oncology
DX: D3A.090 Benign carcinoid tumor of the bronchus and lung (principal)
CPT/HCPCS: 36415; 71260; 74160; 80053; 83615; 85025; Q9967

== ENCOUNTER → 2022-09-07 | Outpatient (CLI) | payer BC, SELFPAY ==
--- NOTE | 2022-09-07 15:51 | CT_ITS ---
EXAM: CT CHEST WITHOUT INTRAVENOUS CONTRAST CLINICAL INDICATION: COPD TECHNIQUE: Helically acquired images were obtained of the chest without intravenous contrast. This CT exam was performed using one or more of the following dose reduction techniques: automated exposure control, adjustment of the mA and/or kV according to patient size, and/or use of iterative reconstruction technique. RADIATION DOSE: CTDIvol = 12.40 mGy, DLP = 400.28 mGy-cm. COMPARISON: June 20, 2022 FINDINGS: LUNGS AND PLEURAL SPACES: Subtle emphysematous changes in the upper lung rodriguez. Postoperative changes of left lower lobectomy again noted. Similar 6 mm x 5 mm groundglass nodule in the posterior right upper lobe. Multiple small calcifications in the left hilum are again noted. Similar 2.3 cm AP by 1.8 cm transverse nodule in the left thyroid lobe. Multiple small hypodensities in the right thyroid lobe. No pleural effusion or thickening. No pneumothorax. HEART: Mild coronary artery calcifications proximal coronary arteries appears similar. Normal heart size. No pericardial effusion. MEDIASTINUM: Unremarkable. No mediastinal or hilar adenopathy. Esophagus is unremarkable. No hiatal hernia. THYROID: Unremarkable. No thyroid lesions. BONES/JOINTS: Unremarkable. No suspicious lytic or blastic abnormality. VASCULATURE: See above. LYMPH NODES: Mediastinal small lymph nodes, stable, nonpathologic by size criteria. ADRENALS: Unremarkable adrenals. CT/Chest without Contrast IMPRESSION: 1. Stable chest. Left lower lobe lobectomy. COPD. 2. Stable 6 mm right upper lobe nodule compared to exams back to June 15, 2020.Fleischner Society Guidelines (MacMahon, et al. Radiology 2017; 284(1):228-43) suggest no follow-up is necessary for this finding in patient with presumed high risk of malignancy. 3. Mild coronary artery calcifications. 4. Left thyroid complex cyst or nodule appears similar to exams back to June 15, 2020. Electronically Signed: Maryjo Garcia MD at 7:54 EDT ,
== END | disposition home or self-care (01) ==
PROVIDERS: PCP Family Medicine; Referring Provider Internal Medicine Pulmonary Disease; Visit Provider Internal Medicine Pulmonary Disease
DX: J44.9 Chronic obstructive pulmonary disease, unspecified (principal); Z72.0 Tobacco use; R91.8 Other nonspecific abnormal finding of lung field
CPT/HCPCS: 71250

== ENCOUNTER → 2023-06-28 | Outpatient (CLI) | payer BC, SELFPAY ==
--- NOTE | 2023-06-28 10:30 | RAD_ITS ---
STUDY: X-RAY CHEST REASON FOR EXAM: Female, 63 years old. MONITOR CARCINOID TUMOR OF LUNG TECHNIQUE: PA and lateral views of the chest. COMPARISON: None. FINDINGS: The lungs are clear and expanded. Slightly elevated left hemidiaphragm. Normal size heart. Normal mediastinum and elizabeth. Normal visualized pulmonary arteries. Normal visualized aortic arch and descending thoracic aorta. Normal visualized thoracic spine. Healed fracture the posterior left sixth rib. There is no demonstrated abnormality of the visualized soft tissue structures of the upper abdomen. RAD/Chest PA and Lateral IMPRESSION: No active disease. Electronically Signed: Gabe Welch MD at 19:25 EDT ,
== END | disposition home or self-care (01) ==
LOC: RAD 10:26
PROVIDERS: PCP Family Medicine; Referring Provider Internal Medicine Medical Oncology; Visit Provider Internal Medicine Medical Oncology
DX: D3A.090 Benign carcinoid tumor of the bronchus and lung (principal)
CPT/HCPCS: 71046

== ENCOUNTER → 2023-08-02 | Outpatient (CLI) | payer BC, SELFPAY ==
--- NOTE | 2023-08-02 15:30 | US_ITS ---
STUDY: THYROID ULTRASOUND REASON FOR EXAM: Female, 63 years old. Multinodular goiter. Follow-up thyroid nodules. TECHNIQUE: Ultrasound evaluation of the thyroid was performed with real-time and static chu-scale imaging. COMPARISON: 12/16/2019. FINDINGS: RIGHT LOBE: The right lobe of the thyroid gland measures 5.5 x 2.6 x 2.3 cm. There is a heterogeneous echotexture. There are multiple thyroid nodules. Nodule 1 in the posterior superior right thyroid lobe is mixed solid and cystic. This measures 1.91 x 1.28 x 1.74 cm. Nodule 2 in the anterior aspect of the upper lobe measures 1.53 x 0.96 x 1.41 cm. This is mixed solid and cystic. Nodule 3 in the posterior aspect of the lower thyroid lobe measures 1.99 x 1.22 x 1.33 cm. This is mixed solid and cystic or solid. Nodule 4 in the anterior lower thyroid lobe measures 1.23 x 0.75 x 1.01 cm. This is solid with small cystic component. This is predominantly hyperechoic. LEFT LOBE: The left lobe of the thyroid gland measures 5.7 1.9 x 2.2 cm. There is a heterogeneous echotexture. There is a large solid mass with small cystic component but predominately solid in the caudal aspect of the thyroid lobe. This measures 4.09 x 2.25 x 2.12 cm. Small anechoic cyst in the superior thyroid lobe measures 0.68 x 0.60 x 0.72 cm. ISTHMUS: The isthmus measures 0.2 cm. . US/Thyroid IMPRESSION: 1. Nodule 1 in the right posterior-superior thyroid lobe is mixed solid and cystic. This measures 1.91 x 1.38 x 1.74 cm, previously 1.38 x 1.14 x 1.26 cm. TI-RADS points: 3. TI-RADS category: TR3. This nodule is mildly suspicious. Recommend follow-up thyroid ultrasounds in 2 years. 2. Nodule 2 in the anterior aspect of the right upper thyroid lobe is mixed solid and cystic. This measures 1.53 x 0.96 x 1.41 cm, previously 1.63 x 0.8 x 1.13 cm. TI-RADS points: 3. TI-RADS category: TR3. This nodule is mildly suspicious. Recommend follow-up thyroid ultrasounds in 2 years. 3. Large nodule in the left lower thyroid lobe is predominantly solid with small cystic components measuring 0.9 x 2.25 x 2.12 cm, previously 2.62 x 2.15 x 1.81 cm. TI-RADS points: 3. TI-RADS category: TR3. This nodule is mildly suspicious. Recommend FNA evaluation. 4. Small anechoic cyst in the left superior thyroid lobe measures 0.68 x 0.60 x 0.72 cm, previously 0.44 x 0.38 x 0.4 cm. TI-RADS points: 0. TI-RADS category: TR1. This nodule is benign and no FNA or follow-up is necessary. Electronically Signed: John Boston MD at 11:33 EDT ,
== END | disposition home or self-care (01) ==
LOC: US 15:29
PROVIDERS: PCP Family Medicine; Referring Provider Internal Medicine Medical Oncology; Visit Provider Internal Medicine Medical Oncology
DX: E04.1 Nontoxic single thyroid nodule (principal)
CPT/HCPCS: 76536

== ENCOUNTER → 2023-08-09 | Outpatient (CLI) | payer BC, SELFPAY ==
--- NOTE | 2023-08-09 11:58 | BI_ITS ---
MAMMOGRAPHY - BILATERAL SCREENING 3-D TOMOSYNTHESIS REASON FOR EXAM: Female, 63 years old. SCREENING PERTINENT HISTORY: No significant family history. TECHNIQUE: 2-D mammograms and 3-D Tomosynthesis of the breast (s) were performed. CAD was performed. COMPARISON: 04/14/2021 FINDINGS: The breast composition is composed of scattered fibroglandular density. Scattered benign calcifications are seen. No dense spiculated masses or suspicious microcalcifications are identified. No architectural distortion is identified. There is no skin thickening or retraction. There has been no significant change since the prior study. BI/SCRN MAMM (CAD)W/CHRISTINE BILAT IMPRESSION: No mammographic signs of malignancy. Routine yearly mammograms recommended. ASSESSMENT CATEGORY: BIRADS Category 1: Negative. A letter regarding these results will be sent to the patient by the facility within 30 days. FOLLOW UP RECOMMENDATION: Yearly follow up mammogram recommended. (A) Approximately 10% of breast cancers are not detected by mammography. A normal mammogram should not delay biopsy of a clinically suspicious abnormality. Electronically Signed: Gabe Welch MD at 14:33 EDT ,
== END | disposition home or self-care (01) ==
LOC: OPBI 11:57
PROVIDERS: PCP Family Medicine; Referring Provider Family Medicine; Visit Provider Family Medicine
DX: Z12.31 Encounter for screening mammogram for malignant neoplasm of breast (principal)
CPT/HCPCS: 77063; 77067

== ENCOUNTER → 2024-05-24 | Outpatient (CLI) | payer BC, SELFPAY ==
--- NOTE | 2024-05-24 14:07 | US_ITS ---
PROCEDURE: ULTRASOUND THYROID REASON FOR EXAM: THYROID NODULE. HISTORY OF LEFT THYROID BIOPSY. TECHNIQUE: Real-time grayscale and color flow imaging was performed along with routine image documentation. COMPARISON: THYROID ULTRASOUND DATED 08/02/2023. FINDINGS: RIGHT THYROID LOBE Size: 5.8 x 2.5 x 2.8 cm. Contour: Smooth. Parenchyma: Homogeneous. Nodules: Superior pole, mixed cystic and solid, 2.3 x 2.1 x 1.6 cm, well-circumscribed, wider than tall, hypoechoic, no calcifications, TR 3. Midpole, mixed cystic and solid, 1.8 x 1.7 x 0.9 cm, well-circumscribed, wider than tall, hypoechoic, no calcifications, TR 3. Posterior midpole, solid, 1.6 x 1.5 x 1.3 cm, well-circumscribed, wider than tall, hyperechoic, no calcifications, TR 3. Inferior pole, predominantly solid, 1.3 x 1.2 x 0.7 cm, wider than tall, hypoechoic, no calcifications, TR 4. LEFT THYROID LOBE Size: 6.8 x 2.4 x 2.6 cm. Contour: Smooth. Parenchyma: Homogeneous. Nodules: Superior pole, cystic, 0.9 x 0.7 x 0.6 cm, wider than tall, anechoic, no calcifications, TR 1. Mid inferior pole, mixed cystic and solid, 4.1 x 2.4 x 2.6 cm, wider than tall, well-circumscribed, no calcifications, hyperechoic, TR 2. ISTHMUS Size: 0.26.cm. Contour: Smooth. Parenchyma: Homogeneous. Nodules: US/Thyroid IMPRESSION: 1. Enlarged thyroid gland. 2. Multiple nodules in the bilateral thyroid lobes. TR 3 and TR 4 nodules in the right thyroid lobe does not warrant biopsy. 3. Benign nodules in the left thyroid lobe, TR 1 and TR 2 category. 4. Follow-up ultrasound recommended in 12 months. Reading Location: [place] [id number]
--- NOTE | 2024-05-24 14:35 | RAD_ITS ---
PROCEDURE: CHEST PA AND LATERAL REASON FOR EXAM: History of carcinoid tumor of the left lung. TECHNIQUE: Frontal and lateral views of the chest. COMPARISON: Comparison is made with prior study dated June 28, 2023. FINDINGS: Hyperinflation and COPD. Stable mild pleural-parenchymal changes in the left lower lobe most likely secondary to prior surgery. Degenerative changes of the thoracic vertebrae. RAD/Chest PA and Lateral IMPRESSION: Stable pleural-parenchymal changes at the left lung base. Reading Location: [facility]
== END | disposition home or self-care (01) ==
LOC: US 14:05
PROVIDERS: PCP Family Medicine; Referring Provider Internal Medicine Medical Oncology; Visit Provider Internal Medicine Medical Oncology
DX: E04.1 Nontoxic single thyroid nodule (principal); D3A.090 Benign carcinoid tumor of the bronchus and lung
CPT/HCPCS: 71046; 76536

== ENCOUNTER → 2024-08-09 | Outpatient (CLI) | payer BC, SELFPAY ==
--- NOTE | 2024-08-09 14:35 | BI_ITS ---
EXAM: SCRN MAMM (CAD)W/CHRISTINE BILAT DATE: 08/09/2024 CLINICAL HISTORY: F, Age 64 y/o , SCREENING No family history. BREAST CANCER RISK ASSESSMENT: Not assessed. TECHNIQUE: Bilateral screening digital breast tomosynthesis with 2D and 3D images. Computer aided detection. COMPARISON: Prior exam(s) dated August 09, 2023.. FINDINGS: TISSUE DENSITY: The breast tissue is almost entirely fatty. Bilateral Breast Mammographic Findings: No significant masses, calcifications or other abnormalities are identified. No suspicious masses, areas of developing architectural distortion, or suspicious calcifications. There has been no significant interval change. BI/SCRN MAMM (CAD)W/CHRISTINE BILAT IMPRESSION: OVERALL FINAL ASSESSMENT: BIRADS 1 NEGATIVE RECOMMENDATION: Routine annual follow-up in 1 Year A letter with findings and recommendations will be mailed to the patient. Reading Location: [place] [id number]
== END | disposition home or self-care (01) ==
LOC: OPBI 14:33
PROVIDERS: PCP Family Medicine; Referring Provider Family Medicine; Visit Provider Family Medicine
DX: Z12.31 Encounter for screening mammogram for malignant neoplasm of breast (principal)
CPT/HCPCS: 77063; 77067